=== PATIENT | female | born 1940 | race Caucasian/White ===

== ENCOUNTER 2023-04-19 13:26 | Outpatient (CLI) | payer OTHER, SELFPAY | END 2023-04-19 13:27 | disposition home or self-care (01) | PROVIDERS: Visit Provider Family Medicine | DX: Z00.00 Encounter for general adult medical examination without abnormal findings (principal); E03.9 Hypothyroidism, unspecified; E66.01 Morbid (severe) obesity due to excess calories; E11.9 Type 2 diabetes mellitus without complications | CPT/HCPCS: 80053; 84443 ==

== ENCOUNTER 2023-09-28 01:48 | Emergency (ER) | payer OTHER, SELFPAY ==
[2023-09-28 01:54] VITALS: BP 172/84; PULSE 61; RESP 16; TEMP 36.5; O2SAT 98; BMI 25.2
[2023-09-28 02:26] VITALS: BP 170/60; PULSE 66; RESP 16; TEMP 36.4; O2SAT 100
--- NOTE | 2023-09-28 02:33 | ED.GENADULT ---
HPI - General Adult General Chief complaint: Back Injury/Pain Stated complaint: right flank pain Time Seen by Provider: 09/28/23 02:09 Source: patient and family Mode of arrival: ambulatory Limitations: no limitations History of Present Illness HPI narrative: 83-year-old female with history of remote breast cancer presents to the emergency department for evaluation of right flank pain for the last few hours. No severe symptoms like dyspnea, hemoptysis, cardiac symptoms or syncope. There is no lightheadedness or rash. She reports that she took some Tylenol at around 6:00 p.m.. She tells me that the pain started around 830 p.m. so this does not quite make sense but she does have a history of some cognitive impairment. She denies any trauma or injury and when I redirect the question back to that several times she does give the same answer. Appetite is normal. There is no nausea or vomiting. The pain comes in crampy waves located in the upper right posterior flank area. No prior history of similar symptoms but does have a family history of kidney stones in her son. No hematuria, no dysuria, no vaginal discharge. She does have a history of gallstones but had her gallbladder removed many years ago with no complication. No history of DVT or PE, no anticoagulation. No palpitations, anterior chest pain or dizziness. She did not try ibuprofen or other pain medications prior to coming to the ED. she called her son and reported the pain and he brought her to an emergency department. Past medical history is notable for type 2 diabetes and cognitive impairment. She tells me that she takes lisinopril but is not on her medicine list and I suspect she is not actually taking it. She tell me that she does not take anything for her diabetes but I do see glipizide on her medicine list but it is listed as p.r.n.. She does accurately tell me that she takes Prevagen for her memory and levothyroxine, she does not know the dose but it is listed in the chart is 50 mg. She is a nonsmoker, lives in senior apartments in [place]. Does not recall the name of her doctor but it sounds as though she sees 1 of the providers at the [facility] in [place]. Nonsmoker, no alcohol use. ROS is notable for the generalized and musculoskeletal symptoms as above, otherwise denies times 12 systems. Related Data Home Medications Medication Instructions Recorded Confirmed prevagen PO 10/24/23 Previous Rx's Medication Instructions Recorded blood sugar diagnostic #100 ea 04/21/23 blood-glucose meter #1 ea 04/21/23 lancets (Accu-Chek Softclix #100 ea 04/21/23 Lancets) levothyroxine 50 mcg tablet 50 mcg PO DAILY #90 tabs 05/07/23 glipizide 5 mg tablet, extended 5 mg PO DAILY PRN hyperglycemia 08/31/23 release 24 hr #90 tabs ciprofloxacin HCl 250 mg tablet 250 mg PO BID #9 tabs 09/28/23 Allergies Allergy/AdvReac Type Severity Reaction Status Date / Time metformin AdvReac Intermediate Verified 09/28/23 02:03 PFSH PFS Social History Smoking Status: Never smoker Exam Const: Vital Signs, click to edit/add: Vital Signs - 24 hr 09/28/23 01:54 Temperature 97.7 F Pulse Rate [Pulse Oximeter] 61 Respiratory Rate 16 Blood Pressure [Le ft Upper Arm] 172/84 H Pulse Oximetry 98 Oxygen Delivery Me thod Room Air Documenting provider has reviewed patient's vital signs: yes Common normals: no apparent distress and alert General appearance: well kempt Other: Some cognitive impairment is evident not can answer most questions well. Friendly and cooperative. Polite. Appears well nourished and well hydrated. Nontoxic HENMT: Common normals: normocephalic and head/scalp atraumatic Head and scalp: normocephalic and atraumatic Face and sinus: normal facial exam Mouth: oral and palatal mucosa normal Throat: posterior oropharynx normal Eye: Common normals: conjunctivae normal General eye: normal appearance of both eyes Conjunctiva: conjunctiva(e) normal Neck & C-Spine: Common normals: full ROM and no lymphadenopathy Chest: Common normals: inspection of chest normal and palpation of chest normal Resp: Common normals: normal respiratory effort, no use of accessory muscles and clear to auscultation bilaterally Effort & inspection: able to speak in complete sentences Auscultation: clear to auscultation bilaterally Cardio: Common normals: regular rate, regular rhythm, S1 normal heart sound, S2 normal heart sound and no murmurs Rate: regular rate Rhythm: regular rhythm Heart sounds: S1 normal and S2 normal GI: Common normals: Normal to inspection, nondistended, normoactive bowel sounds present, soft to palpation, non-tender, no hepatosplenomegaly and no masses Palpation: soft and no hepatosplenomegaly : Bladder/kidney exam: CVA tenderness (Right-sided CVA tenderness is present) Back & Pelvis: General back: CVA tenderness (Right-sided CVA tenderness is present) Thoracic spine/upper back: normal to inspection and paraspinal muscle tenderness (Mild, right side only, mostly just near the CVA area.); no thoracic spinal tenderness Lumbar spine/lower back: normal to inspection; no lumbar spinal tenderness and no paraspinal muscle tenderness Extremity: Common normals: full ROM and normal capillary refill Other: Mild lymphedema right upper extremity noted. Reports this is chronic secondary to prior breast cancer treatment Neuro: Sensorium/orientation: alert Speech: speech normal Motor exam: strength 5/5 throughout, no tremor noted and no movement abnormalities noted Psych: Appearance: well kempt Activity/motor behavior: appropriate eye contact Insight: fair Judgement: fair Skin: Common normals: no rashes or lesions noted General skin exam: no rashes or lesions noted Course Course ED Course: Right-sided flank pain with CVA tenderness on exam and no other red flags of cardiopulmonary or intra-abdominal process. Differential diagnosis high as for kidney stone but cannot exclude pulmonary embolism, cardiac process, pneumonia, CHF, liver disease or early shingles that has not presented get with a rash. She declines pain medication for now though this was offered. Recommend urinalysis basic labs an EKG. Will likely be getting a CT scan of the abdomen and pelvis without contrast to look for kidney stone but I am awaiting the lab findings 1st. Reevaluation(s) Time of Reevaluation #1: 04:19 Reevaluation #1: Reviewed normal lab and CT findings with patient and family. She sitting upright in the chair, reporting no pain still. Conversing normally per son. Suspect musculoskeletal etiology, arthritis in the back or other similar etiology such as neuropathic type pain related to her previous breast cancer but there are no signs of any grave complication. The urine is suspicious for infection, do recommend treatment as this certainly could be a referred ureteral pain in the setting of mild infection. Will start ciprofloxacin as we do not have much resistance in our area. Two hundred fifty twice daily for a total of 5 days, 1st dose will be given here in ED. Subsequent doses sent to patient's preferred pharmacy. Counseled on Tylenol, ibuprofen and topical muscle rub for pain control. Primary care follow-up if not improving in 7 days. All questions answered, they verbalized understanding and agreement Vital Signs Vital signs: Initial Vital Signs Temperature 97.7 F 09/28/23 01:54 Temperature Source Temporal Artery Scan 09/28/23 01:54 Pulse Rate 61 09/28/23 01:54 Respiratory Rate 16 09/28/23 01:54 Blood Pressure 172/84 H 09/28/23 01:54 Blood Pressure Mean 113 H 09/28/23 01:54 Blood Pressure Position Supine 09/28/23 01:54 Pulse Oximetry 98 09/28/23 01:54 Oxygen Delivery Method Room Air 09/28/23 01:54 Vital Signs Temperature 97.7 F 09/28/23 01:54 Pulse Rate 61 09/28/23 01:54 Respiratory Rate 16 09/28/23 01:54 Blood Pressure 172/84 H 09/28/23 01:54 Pulse Oximetry 98 09/28/23 01:54 Oxygen Delivery Method Room Air 09/28/23 01:54 Temperature 97.7 F 09/28/23 01:54 Pulse Rate 61 09/28/23 01:54 Respiratory Rate 16 09/28/23 01:54 Blood Pressure 172/84 H 09/28/23 01:54 Pulse Oximetry 98 09/28/23 01:54 Oxygen Delivery Method Room Air 09/28/23 01:54 Medical Decision Making Lab Data Labs: Lab Results 09/28/23 09/28/23 Range/Units 02:25 03:10 WBC 3.09 L (4.50-11.00) K/uL RBC 3.71 L (4.00-5.20) m/uL Hgb 12.4 (12.0-16.0) gm/dL Hct 37.1 (33.0-51.0) % MCV 100 (80-100) fL MCH 33 (26-34) pg MCHC 33 (32-36) gm/dL RDW Coeff of Neal 12.4 (11.5-15.5) % Plt Count 199 (140-440) K/uL Neut % (Auto) 31.4 L (42.0-72.0) % Lymph % (Auto) 52.1 H (20-44) % [place] % (Auto) 13.3 H (0.0-11.0) % Eos % (Auto) 1.9 (0.0-7.0) % Baso % (Auto) 0.3 (0.0-3.0) % Neut # (Auto) 1.00 L (1.7-7.0) K/uL Lymph # (Auto) 1.60 (0.90-2.90) K/uL [place] # (Auto) 0.40 (0.00-0.90) K/UL Eos # (Auto) 0.10 (0.00-0.50) K/uL Baso # (Auto) 0.00 (0.00-0.30) K/uL Abs Immat Gran (auto) 0.00 (0.00-0.30) K/uL Imm/Tot Granulo (auto) 1.0 % D-Dimer Quant (PE/DVT) < 0.27 (0.00-0.50) ug/ml Sodium 140 (135-149) mmol/L Potassium 4.0 (3.6-5.1) mmol/L Chloride 104 (96-114) mmol/L Carbon Dioxide 27 (20-32) mmol/L Anion Gap 9 (7-15) mEq/L BUN 23 (7-30) mg/dL Creatinine 0.9 (0.5-1.5) mg/dL Estimated Creat Clear 32.53 Estimated GFR 63 ml/min Glucose 186 H (60-115) mg/dL Calcium 9.2 (8.4-10.6) mg/dL Total Bilirubin 0.4 (0.1-1.5) mg/dL AST 22 (12-35) U/L ALT 19 (4-35) U/L Alkaline Phosphatase 72 (40-150) U/L Troponin I < 0.01 L (0.01-0.04) ng/mL C-Reactive Protein < 0.5 L (0.5-1.0) mg/dL Total Protein 7.0 (6.0-8.3) g/dL Albumin 4.1 (3.3-5.0) g/dL Urine Color Yellow (Yellow) Urine Appearance Cloudy A (Clear) Urine pH 5.0 (5.0-8.5) Ur Specific [place] 1.025 (1.000-1.030) Urine Protein Negative (Negative) Urine Glucose (UA) Trace A (Negative) Urine Ketones Negative (Negative) Urine Blood Trace-intact A (Negative) Urine Nitrite Positive A (Negative) Urine Bilirubin Negative (Negative) Urine Urobilinogen 0.2 (0.2-1.0) Ur Leukocyte Esterase 1+ A (Negative) Urine RBC 0-2 (0-2) Urine WBC 5-10 A (0-5) Ur Squamous Epith Cells Moderate A (None-Few) Urine Bacteria Moderate A (None) POC Troponin I 0.00 L (0.01-0.04) ng/ml Imaging Data CT scan - abdomen: Attestation: I have reviewed the pertinent imaging results. My impression: Normal CT Radiologist's impression: IMPRESSION: Unremarkable CT of the abdomen and pelvis. No kidney or ureteral stones or hydronephrosis and no other specific finding to explain right flank pain. Please note that all CT scans at this facility use dose modulation, iterative reconstruction, and/or weight-based dosing when appropriate to reduce radiation dose to as low as reasonably achievable. ECG Data Attestation: I personally reviewed and interpreted this ECG as follows: Prior ECG tracings: not available for review Interpretation: Normal sinus rhythm, rate of 78. Normal intervals and axis. No significant ST or T-wave abnormalities. Normal EKG. Surprisingly great for her age Discharge Plan Discharge Clinical Impression: Urinary tract infection, Back pain, thoracic Patient Disposition: Home w/ Parent or Adult Condition: Improved Instructions: Thoracic Pain (ED), Urinary Tract Infection in Older Adults (ED) Additional Instructions: As we discussed, there are no signs of major infection, blood clots, heart attack or kidney stones today. This is great news. I suspect that your pain is from some arthritis in your back or a pulled muscle. It could also be related to the mild bladder infection that you have. There are no signs of severe infection thankfully. I do recommend that we treat the bladder infection. I have started an antibiotic notice ciprofloxacin. He will take this 1 pill 2 times daily for the next few days. For the pain, I recommend Tylenol arthritis 2 pills twice daily. You may also use muscle rubs like icy Hot, Nathan-Dooley patches, etc.. You may also use ibuprofen 400 mg every 6 hours if your pain is not adequately controlled by the Tylenol. Unless there is high fever, severe weakness, difficulty breathing or cardiac symptoms, this should not need re-evaluation in the emergency department. If you are still having problems after 7 days, make a follow-up appointment with her primary care doctor to discuss physical therapy and additional investigation. Activity Level: No Restrictions Discharge Diet: Regular Prescriptions: New ciprofloxacin HCl 250 mg tablet 250 mg PO BID Qty: 9 0RF No Action (DME) blood sugar diagnostic Strip See Rx Instructions .ROUTE .MEDSUPPLY Qty: 100 0RF Rx Instructions: Once daily, varied times (DME) blood-glucose meter Kit See Rx Instructions .ROUTE .MEDSUPPLY Qty: 1 0RF Rx Instructions: Test 1-4 times daily, and as needed for new symptoms (DME) lancets [Accu-Chek Softclix Lancets] Misc See Rx Instructions .ROUTE .MEDSUPPLY Qty: 100 0RF Rx Instructions: 1-4 times daily, and prn symptoms levothyroxine 50 mcg tablet 50 mcg PO DAILY Qty: 90 3RF prevagen PO glipizide 5 mg tablet extended release 24hr 5 mg PO DAILY PRN (Reason: hyperglycemia) Qty: 90 1RF Follow Up/Referrals: Dawood Simmons PA-C [Primary Care Provider] - Stand Alone Forms: [employer] Info Instructions
[2023-09-28 02:37] LABS: Appearance Urine Cloudy (Clear); Bilirubin Urine Negative (Negative); Blood Urine Trace-intact (Negative); Color Urine Yellow (Yellow); Glucose Urine Trace (Negative); Ketones Urine Negative (Negative); Leukocyte Esterase Urine 1+ (Negative); Nitrite Urine Positive (Negative); Protein Urine Negative (Negative); Specific Gravity Urine 1.025 (1.000-1.030); Urobilinogen Urine 0.2 (0.2-1.0)
[2023-09-28 02:46] LABS: Bacteria Urine Moderate; RBC Urine 0-2 (0-2); Squamous Epithelial Cell Urine Moderate (None-Few)
--- NOTE | 2023-09-28 02:47 | CRLHL7_ITS ---
For Patients: As a result of the Century Cures Act, medical imaging exams and procedure reports are released immediately into your electronic medical record. You may view this report before your referring provider. If you have questions, please contact your health care provider. INDICATION: Right flank pain. TECHNIQUE: CT abdomen and pelvis without contrast, stone protocol. COMPARISON: None. FINDINGS: Kidney/ureters/bladder: Kidneys are normal in caliber. No kidney or ureteral stones and no hydronephrosis. No sign of perinephric inflammation. Ureters are normal in caliber. Distal ureters and bladder are obscured by artifact from bilateral hip hardware. Liver/gallbladder/bile ducts: The liver is normal in size, shape and attenuation. Cholecystectomy. Spleen/pancreas/adrenal glands: The spleen, adrenal glands and pancreas are within normal limits. GI tract: The bowel is unremarkable except for moderate sigmoid diverticulosis. Post appendectomy. Abdominal wall/omentum/peritoneum: No free air or significant free fluid. No mass or inflammation. Lymph nodes: No lymphadenopathy. Pelvis: Unremarkable pelvis. Lower chest: Unremarkable. IMPRESSION: Unremarkable CT of the abdomen and pelvis. No kidney or ureteral stones or hydronephrosis and no other specific finding to explain right flank pain. Please note that all CT scans at this facility use dose modulation, iterative reconstruction, and/or weight-based dosing when appropriate to reduce radiation dose to as low as reasonably achievable. Dictated by Azeem Lainez MD @ 09/28/2023 4:06:43 AM (Electronically Signed)
[2023-09-28 03:21] LABS: Basophils Percent Auto 0.3 % (0.0-3.0); Eosinophils Percent Auto 1.9 % (0.0-7.0); Hematocrit 37.1 % (33.0-51.0); Hemoglobin* 12.4 gm/dL (12.0-16.0); Lymphocytes Percent Auto 52.1 % (20-44); Mean Corpuscular HGB Conc 33 gm/dL (32-36); Mean Corpuscular Hemoglobin 33 pg (26-34); Mean Corpuscular Volume 100 fL (80-100); Monocytes Percent Auto 13.3 % (0.0-11.0); Neutrophils Percent Auto 31.4 % (42.0-72.0); Platelet Count* 199 K/uL (140-440); RDW Coefficient of Variation % 12.4 % (11.5-15.5); Red Blood Count 3.71 m/uL (4.00-5.20); White Blood Count* 3.09 K/uL (4.50-11.00)
[2023-09-28 03:29] LABS: Slide Review Reflex No
[2023-09-28 03:35] LABS: Albumin* 4.1 g/dL (3.3-5.0); Chloride* 104 mmol/L (96-114); Sodium* 140 mmol/L (135-149)
[2023-09-28 03:37] LABS: Creatinine* 0.9 mg/dL (0.5-1.5); Est. Creatinine Clearance* 32.53; Estimated Glomerular Filt Rate 63 ml/min
[2023-09-28 03:38] LABS: Alanine Aminotransferase* 19 U/L (4-35); Alkaline Phosphatase* 72 U/L (40-150); Anion Gap 9 mEq/L (7-15); Aspartate Amino Transferase* 22 U/L (12-35); Bilirubin Total* 0.4 mg/dL (0.1-1.5); Blood Urea Nitrogen* 23 mg/dL (7-30); Carbon Dioxide* 27 mmol/L (20-32); Glucose* 186 mg/dL (60-115)
[2023-09-28 03:39] LABS: Calcium* 9.2 mg/dL (8.4-10.6)
[2023-09-28 03:40] LABS: D Dimer Quantitative* < 0.27 ug/ml (0.00-0.50)
[2023-09-28 03:42] LABS: C Reactive Protein* < 0.5 mg/dL (0.5-1.0)
[2023-09-28 03:50] LABS: Troponin I* < 0.01 ng/mL (0.01-0.04)
[2023-09-28] MEDS: CIPROFLOXACIN 250 MG TABLET PO (04:20)
--- NOTE | 2023-09-28 04:32 | PC.NURSE ---
DC ambulatory with , pain has improved at this time. no further questions about DC instructions
== END 2023-09-28 04:31 | disposition home or self-care (01) ==
PROVIDERS: Emergency Provider Family Medicine; PCP Physician Assistant Medical
DX: M54.6 Pain in thoracic spine (principal); N39.0 Urinary tract infection, site not specified
CPT/HCPCS: 36415; 74176; 80053; 81003; 81015; 84484; 85025; 85379; 86140; 87086; 87186; 93005; 99284; 99285; A9270

== ENCOUNTER 2024-03-02 09:28 | Outpatient (CLI) | payer OTHER, SELFPAY | END 2024-03-02 09:29 | disposition home or self-care (01) | LOC: NFLDREF 03-03 06:14 | PROVIDERS: PCP Physician Assistant Medical; Referring Provider Physician Assistant Medical; Visit Provider Physician Assistant Medical | DX: E03.9 Hypothyroidism, unspecified (principal); E11.9 Type 2 diabetes mellitus without complications | CPT/HCPCS: 80053; 80061; 82043; 82570; 84443 ==

== ENCOUNTER 2024-06-14 09:56 | Outpatient (CLI) | payer MEDICARE, SELFPAY | END 2024-06-14 09:57 | disposition home or self-care (01) | LOC: NFLDREF 06-18 07:21 | PROVIDERS: PCP Physician Assistant Medical; Referring Provider Physician Assistant Medical; Visit Provider Physician Assistant Medical | DX: R53.83 Other fatigue (principal); E11.49 Type 2 diabetes mellitus with other diabetic neurological complication; E03.9 Hypothyroidism, unspecified; Z86.39 Personal history of other endocrine, nutritional and metabolic disease | CPT/HCPCS: 82306; 82607 ==

== ENCOUNTER 2024-08-30 08:42 | Outpatient (CLI) | payer MEDICARE, SELFPAY ==
--- NOTE | 2024-08-30 09:00 | CRLHL7_ITS ---
For Patients: As a result of the Century Cures Act, medical imaging exams and procedure reports are released immediately into your electronic medical record. You may view this report before your referring provider. If you have questions, please contact your health care provider. 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 COMPARISON: Two view chest July 27, 2024. TECHNIQUE: CT chest without intravenous contrast; coronal and sagittal reformats. FINDINGS: Extrapleural soft tissue mass density identified in the right upper chest anterolaterally measuring 2.2 cm in vertical dimension and 1.6 cm in the AP dimension and 1 cm in the [id number]-we-wehx dimension. The average Hounsfield units of 28. This is located in the right 5th intercostal space. 2 mm subpleural noncalcified nodular density right upper lobe slice 21 series 3. Patchy nodular infiltrate upper lobe right lung. A 1.4 x 0.7 cm ground-glass opacity right middle lobe slice 90 series 5. A 6.6 mm spiculated noncalcified nodular density lower lobe left lung slice 45 series 3. No abnormal mediastinal or hilar lymphadenopathy. Coronary artery calcifications. No evidence of pleural effusion or chest wall pathology. Limited CT through the upper abdomen reveals evidence of cholecystectomy. Calcifications identified in the subareolar location right breast. IMPRESSION: 1. A 6.6 mm spiculated nodular opacity lower lobe left lung; follow-up chest CT in 3 months duration suggested. 2. A 1.4 x 0.7 cm ground-glass opacity right middle lobe; follow-up chest CT in 6 months suggested 3. An extrapleural soft tissue density in the right anterolateral chest wall; could represent a schwannoma; CT and MR of the chest with intravenous contrast suggested for further assessment. 4. Patchy infiltrates right upper lobe. 5. Coronary artery calcifications. Please note that all CT scans at this facility use dose modulation, iterative reconstruction, and/or weight-based dosing when appropriate to reduce radiation dose to as low as reasonably achievable. Dictated by Brook Mijares MD @ 09/01/2024 12:56:09 PM (Electronically Signed)
== END 2024-08-30 08:43 | disposition home or self-care (01) ==
PROVIDERS: PCP Physician Assistant Medical; Visit Provider Emergency Medicine
DX: D36.14 Benign neoplasm of peripheral nerves and autonomic nervous system of thorax (principal); I25.10 Atherosclerotic heart disease of native coronary artery without angina pectoris; N64.4 Mastodynia
CPT/HCPCS: 71250

== ENCOUNTER 2024-10-26 14:40 | Outpatient (CLI) | payer MEDICARE, SELFPAY | END 2024-10-26 14:41 | disposition home or self-care (01) | LOC: LKVREF 14:40 | PROVIDERS: PCP Physician Assistant Medical; Visit Provider Emergency Medicine | DX: I10 Essential (primary) hypertension (principal) | CPT/HCPCS: 80048 ==

== ENCOUNTER 2025-01-25 10:36 | Outpatient (CLI) | payer MEDICARE, SELFPAY | END 2025-01-25 10:37 | disposition home or self-care (01) | LOC: LKVREF 10:36 | PROVIDERS: PCP Physician Assistant Medical; Visit Provider Emergency Medicine | DX: E03.9 Hypothyroidism, unspecified (principal); E11.49 Type 2 diabetes mellitus with other diabetic neurological complication; D75.89 Other specified diseases of blood and blood-forming organs; E16.2 Hypoglycemia, unspecified | CPT/HCPCS: 82043; 82570; 84443 ==

== ENCOUNTER 2025-03-18 06:00 | Emergency (ER) | payer MEDICARE, SELFPAY ==
--- OUTSIDE RECORDS SUMMARY | 2025-03-18 06:02 | XMS_ITS | Encounter Summary ---
[facility] Organization [facility] Address [address], [place] [address] Care Team Providers Care Lawn Care Specialist Name Role Phone Nadia Benson PA-C Primary Care Provider [phone] Encounter Details Date Type Department Care Team (Late st Contact Info) Description 08/13/2019 Outside Hospital External to [facility] HISTORY AND PHYSICAL - ADDENDUM Social History Tobacco Use Types Packs/Day Years Used Date Smoking Tobacco: Never Assessed PHQ-2 Answer Date Recorded PHQ-2 Score 2 03/04/2019 Comments No Sex and Gender Information Value Date Recorded Sex Assigned at Not on file Legal Sex Female 5:25 AM CDT Gender Identity Not on file Sexual Orientation Not on file documented as of this encounter Plan of Treatment Not on file documented as of this encounter Visit Diagnoses Not on filedocumented in this encounter Care Teams Lawn Care Specialist Relationship Specialty Start Date End Date Nadia Benson PA-C [address] [place] [address] PCP - General Physician Tune Up Mechanic 06/09/21 documented as of this encounter
--- OUTSIDE RECORDS SUMMARY | 2025-03-18 06:02 | XMS_ITS | Encounter Summary ---
Author Organization [facility] Address [address] [facility] [place] [address] Care Team Providers Care Html Developer Name Role Phone Handy Noyola DO Unavailable [phone] Bisi Mcfarlane MD Primary Care Provider [phone] John Jones MD Unavailable Noble Freire MD Unavailable [phone] Marii Mendiola RN Unavailable Unavailable Trev Montanez MD Unavailable Buffy Esparza PA-C Unavailable Trev Montanez MD Unavailable Encounter Details Date Type Department Care Team (Late st Contact Info) Description 10/23/2024 [facility] [address] [place] [address] Marii Mendiola, RN Social History Tobacco Use Types Packs/Day Years Used Date Smoking Tobacco: Never Smokeless Tobacco: Never Alcohol Use Standard Drinks/Week Comments Not Currently 0 (1 standard drink = 0.6 oz pur e alcohol) Adolescent Education Answer Date Record ed Getting School Help Needed Not on file 08/14 Interpersonal Safety Answer Date Record ed Do you feel physically and e motionally safe where you currently live? Yes 10/18/2024 Within the past 12 months, h ave you been hit, slapped, kicked or otherwise physically hurt by someone? No 10/18/2024 Within the past 12 months, h ave you been humiliated or emotionally abused in other ways by your partner or ex-partner? 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 Gender Identity Not on file Sexual Orientation Not on file documented as of this encounter Plan of Treatment Not on file documented as of this encounter Visit Diagnoses Not on filedocumented in this encounter Care Teams Html Developer Relationship Specialty Start Date End Date Bisi Mcfarlane MD [facility] [address] [place] [address] PCP - General Family Medicine 09/18/24 Handy Noyola DO [address] [facility] [address] [place] [address] Box Inspector Pulmonary Disease 09/14/24 John Jones MD [facility] [address] [place] [address] [address] [place] [address] Hematology & Oncology 09/18/24 Noble Freire MD [facility] [address] [facility] [address] [place] [address] Hematology & Oncology 09/18/24 Marii Mendiola, BEBETO Specialty Mine Foreman Hematology & Oncology 10/06/24 Trve Montanez MD [address] [place] [address] [address] [place] [address] Assigned Heart and Vascular Provider 10/30/24 01/27/25 Buffy Esparza PA-C [address] [place] [address] [address] [place] [address] Assigned Surgical Provider 10/30/24 Trev Montanez MD [address] [facility] [address] [place], [place] [address] Assigned Heart and Vascular Surgical Provider 01/28/25 documented as of this encounter
--- OUTSIDE RECORDS SUMMARY | 2025-03-18 06:02 | XMS_ITS | Clinical Summary ---
Author Organization [place] Address [address] [place] [address]. [place] [address] Care Team Providers Care Certified First Assistant Name Role Phone Handy Noyola DO Unavailable [phone] Bisi Mcfarlane MD Primary Care Provider [phone] John Jones MD Unavailable Noble Freire MD Unavailable [phone] Marii Mendiola RN Unavailable Unavailable Buffy EsparzaC Unavailable [phone] Trev Montanez MD Unavailable Allergies Active Allergy Reactions Criticality Noted Date Comments Gabapentin Rash Low 11/27/2013 Metformin Low 09/12/2024 Omeprazole Angioedema High 05/31/2013 Statins Muscle Pain (Myalgia) Low 04/16/2009 Medications levothyroxine (SYNTHROID/LEV OTHROID) 50 MCG tablet Take 50 mcg by mouth every morning. 10/27/20 18 Active cyanocobalamin (VITAMIN B-12) 1000 [address] 1,000 mcg under the tongue daily. 02/13/20 20 Active acetaminophen (TYLENOL) 325 MG tabletIndicati ons:Schwannoma Take 3 tablets (975 mg) by mouth every 6 hours. 10/19/20 24 Active JARDIANCE 10 MG TABS tablet Take 25 mg by mouth daily. 12/19/20 24 Active aspirin 81 MG EC tablet Take 81 mg by mouth daily. Active glipiZIDE (GLUCOTROL XL) 10 MG 24 hr tablet Take 10 mg by mouth 2 times daily. 08/03/20 025 Discontinued Lidocaine (LIDOCARE) 4 % Patch Place 1 patch onto the skin every 24 hours. To prevent lidocaine toxicity, patient should be patch free for 12 hrs daily. 025 Discontinued Diclofenac Sodium 3 % GEL Apply 1 Application topically 2 times daily as needed. FOR BACK PAIN 025 Discontinued methocarbamol (ROBAXIN) 500 MG tabletIndicati ons:Schwannoma Take 1 tablet (500 mg) by mouth every 6 hours as needed for muscle spasms. 20 tablet 10/19/20 025 Discontinued polyethylene glycol (MIRALAX) 17 g packetIndicati ons:Schwannoma Take 17 g by mouth daily. 7 packet 10/20/20 025 Discontinued senna-docusate (SENOKOT-S/PER ICOLACE) 8.6-50 MG tabletIndicati ons:Schwannoma Take 1 tablet by mouth 2 times daily as needed for constipation. 14 tablet 10/19/20 025 Discontinued oxyCODONE (ROXICODONE) 5 MG tabletIndicati ons:Schwannoma Take 0.5 tablets (2.5 mg) by mouth every 4 hours as needed for moderate pain or moderate to severe pain. 40 tablet 10/19/20 025 Discontinued Active Problems Problem Noted Date Diagnosed Date Schwannoma 10/18/2024 Adenomatous polyp of colon 09/18/2024 Overview (09/18/2024): 2009 Arthralgia of multiple joints 09/18/2024 Atrophic vaginitis 09/18/2024 Back pain, thoracic 09/18/2024 Chronic leg pain 09/18/2024 Vaginal bleeding 09/18/2024 Disorder of vagina 09/18/2024 Estrogen receptor positive status (ER+) 09/18/20 History of non anemic vitamin B12 deficiency 09/2024 History of partial mastectomy of left breast 09/2024 Leukopenia 09/18/2024 Overview (09/18/2024): Pathology negative Lung infiltrate on CT 09/18/2024 Overview (09/18/2024): No symptoms, doxycycline Nerve pain 09/18/2024 Neutropenia 09/18/2024 Overview (09/18/2024): ANC 1.0 peripheral smear 2023 Osteoporosis 09/18/2024 Overview (09/18/2024): [facility] records could not tolerate biphosphonate Pulmonary nodules 09/18/2024 Overview (09/18/2024): Repeat chest CT 3 in 6 months 08/2024 LLL and RML 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 Overview (09/18/2024): right pleural schwannoma, recommend CT every 1-[address]?06/[address] August 2024 2.2 cm x 1.6 cm x 1 cm Chronic headache 08/13/2019 Essential tremor 08/13/2019 Shaking 08/13/2019 Insomnia 06/20/2019 B12 nutritional deficiency 01/13/2019 Colon polyps 01/13/2019 Overview (09/18/2024): Colonoscopy 06/10/2005 with polyps, repeat 09/2010 with adenomatous polyps, repeat 5 years Hyperlipidemia 01/13/2019 Elevated TSH 05/21/2017 Microalbuminuria 02/28/2016 Type 2 diabetes mellitus 05/20/2015 Malignant neoplasm of right female breast 2013 Porokeratosis 12/12/2013 History of osteoporosis 11/27/2013 Overview (09/18/2024): Intol bisphosphonate Gastroesophageal reflux disease 01/22/2013 Overview (09/18/2024): EGD 2012 Hip arthritis 04/20/2011 Encounters Date Type Department Care Team Description 03/05/2025 11:45 AM CDT Oncology Visit [facility] [address] [place] [phone] Michaela Caruso APRN GAS ENGINE REPAIRER Schwannoma of nerve of chest (Primary Dx) 03/05/2025 10:40 AM CDT Ancillary Procedure [facility] [place] [address] [facility] 1st [place] [address] Trev Montanez MD Schwannoma of nerve of chest 03/05/2025 Travel 02/21/2025 2:21 PM CDT - 02/21/2025 11:59 PM CDT Hospital Encounter [facility] [place] [address], [address] [place] [address] Bisi Mcfarlane MD Visit for screening mammogram Discharge Disposition: Home or Self Care 02/21/2025 Travel from Last 3 Months Immunizations Immunization Administration Dates Next Due Flu 65+ (Fluad) 08/07/2024,09/02/2018,09/03/2017 Influenza (High Dose) Trival ent,PF (Fluzone) 08/04/2019,10/02/2016,07/31/2014 Influenza (IIV3) PF 09/29/2013, 3,07/21/2010,2008 Influenza Vaccine 65+ (FLUAD) 09/04/2021 Influenza Vaccine 65+ (Fluzone HD) 08/31/2023 Influenza Vaccine >6 months,quad, PF ,08/07/2015,08/09/2008,2006,09/25/1998 Influenza, Split Virus, Triv alent, Pf (Fluzone\Fluarix) 07/22/2011 Pneumo Conj 13-V (2010&after) 11/22/2015 Pneumococcal 23 valent 11/08/2008 TDAP (Adacel,Boostrix) 11/24/2012 Td (Adult), Adsorbed 09/13/2006,08/08/2006 Zoster vaccine, live 09/12/2007 Family History Medical History Relation Comments Breast Cancer Sister 1 Anesthesia Reaction No family hx of Bleeding Disorder No family hx of Clotting Disorder No family hx of Relation Status Comments Brother 1 Brother 2 Brother 3 Father Mother Sister 1 Alive Sister 2 Sister 3 Sister 4 Social History Tobacco Use Types Packs/Day Years Used Date Smoking Tobacco: Never Smokeless Tobacco: Never Tobacco Cessation:Counseling Given: Not Answered Alcohol Use Standard Drinks/Week Comments Not Currently 0 (1 standard drink = 0.6 oz pur e alcohol) PHQ-2 Answer Date Recorded PHQ-2 Score 0 03/05/2025 Adolescent Education Answer Date Record ed Getting [...] on file Legal Sex Female 3:03 AM JOB MOLDER Gender Identity Not on file Sexual Orientation Not on file Last Filed Vital Signs Vital Sign Reading Time Taken Comments Blood Pressure 119/67 03/05/2025 11:38 AM CDT Pulse 72 03/05/2025 11:38 AM CDT Temperature 36.4 C (97.5 F) 03/05/2025 11:38 AM CDT Respiratory Rate 20 03/05/2025 11:38 AM CDT Oxygen Saturation 97% 03/05/2025 11:38 AM CDT Inhaled Oxygen Concentration - - Weight 62.1 kg (137 lb) 03/05/2025 11:38 AM CDT Height 157.5 cm (5' 2) 10/18/2024 5:53 AM JOB MOLDER Body Mass Index 25.06 10/18/2024 5:53 AM JOB MOLDER Plan of Treatment Health Maintenance Due Date Last Done Comments ANNUAL REVIEW OF HM ORDERS 1938 DIABETIC FOOT EXAM 1938 EYE EXAM 1938 LIPID 1938 MICROALBUMIN 1938 TSH W/FREE T4 REFLEX 1938 FALL RISK ASSESSMENT 2003 MEDICARE ANNUAL WELLNESS VISIT 2003 ZOSTER IMMUNIZATION (2 of 3) 11/07/2007 09/12/2007 RSV VACCINE (1 - 1-dose 75+ series) 2013 DTAP/TDAP/TD IMMUNIZATION (2 - Td or Tdap) 11/24/2022 11/24/2012, 09/13/2006, 08/08/2006 A1C 01/11/2025 10/13/2024, 06/14/2024 COVID-19 Vaccine ( season) 2025 08/07/2024, 09/17/2023, 05/08/2022, Additional history exists BMP 10/19/2025 10/19/2024, 04/2024, 05/20/2020 MAMMO SCREENING 02/21/2026 02/21/2025, 02/06, 02/15/2023, Additional history exists ADVANCE CARE PLANNING 10/13/2029 10/13/2024 DEXA 02/24/2033 02/24/2018 Pneumococcal Vaccine: 50+ Years Completed 11/22/2015, 11/08/2008 INFLUENZA VACCINE Completed 08/07/2024, , 09/04/2021, Additional history exists PHQ-2 (once per calendar year) Completed 03/05/2025, 10/13/2024 HPV IMMUNIZATION Aged Out No longer e ligible based on patient's age to complete this topic MENINGITIS IMMUNIZATION Aged Out No l onger eligible based on patient's age to complete this topic Procedures Procedure Name Priority Date/Time Associated Diagnosis Comments CT CHEST W/O CONTRAST Routine 03/05/2025 10:38 AM CDT Schwannoma of nerve of chest MA SCREENING BILATERAL W/ YOVANI Routine 02/21/2025 2:39 PM CDT Visit for screening mammogram BASIC METABOLIC PANEL Routine 10/19/2024 6:47 AM JOB MOLDER HEMOGLOBIN A1C Routine 10/13/2024 9:30 AM JOB MOLDER Pre-operative examination Schwannoma of nerve of chest Type 2 diabetes mellitus without complication, without long-term current use of insulin (H) from Last 3 Months or Most Recently Relevant to Health Maintenance Results * CT Chest w/o Contrast (03/05/2025 10:38 AM CDT) Anatomical Region Laterality Modality Chest, SUBRAD CT BODY, UMP CT CHEST, RAD CT Computed Tomography Impressions 03/05/2025 2:35 PM CDT IMPRESSION: Diffuse atherosclerosis. Cholecystectomy. 5 mm left lower lobe nodule unchanged from August 2024. Interval removal of right chest wall pleural-based mass. ARMEN FABIAN MD Narrative 03/05/2025 2:[address] chest without contrast INDICATION: Schwannoma COMPARISON: Outside chest CT 08/30/2024 No contrast. The included thyroid appears unremarkable. There is atherosclerotic calcification in the aorta and coronary arteries. Heart size normal. Thoracic aortic caliber normal. Pulmonary artery caliber normal coarse calcification right breast with nipple retraction suggested. Review of recent mammogram showed right breast surgery related disease findings. Cholecystectomy. Splenic artery diffuse atherosclerotic calcification as well as in the abdominal aorta and the proximal superior mesenteric artery. No enlarged lymph nodes in the chest. No effusions. Degenerative changes in the spine. Detail of the lungs shows calcified granuloma lateral right upper lobe. Calcified granuloma right minor fissure. There is an endobronchial 3 x 2 mm right middle lobe nodule (4/145). Lingular subsegmental atelectasis. The solid noncalcified subpleural nodule measures approximately 5 mm (4/164) the area unchanged. The previous right lateral pleural-based soft tissue mass in the right fifth intercostal space region history no longer evident. Procedure Note Armen Fabian MD - 03/05/2025 CT chest without contrast INDICATION: Schwannoma COMPARISON: Outside chest CT 08/30/2024 No contrast. The included thyroid appears unremarkable. There is atherosclerotic calcification in the aorta and coronary arteries. Heart size normal. Thoracic aortic caliber normal. Pulmonary artery caliber normal coarse calcification right breast with nipple retraction suggested. Review of recent mammogram showed right breast surgery related disease findings. Cholecystectomy. Splenic artery diffuse atherosclerotic calcification as well as in the abdominal aorta and the proximal superior mesenteric artery. No enlarged lymph nodes in the chest. No effusions. Degenerative changes in the spine. Detail of the lungs shows calcified granuloma lateral right upper lobe. Calcified granuloma right minor fissure. There is an endobronchial 3 x 2 mm right middle lobe nodule (4/145). Lingular subsegmental atelectasis. The solid noncalcified subpleural nodule measures approximately 5 mm (4/164) the area unchanged. The previous right lateral pleural-based soft tissue mass in the right fifth intercostal space region history no longer evident. IMPRESSION: Diffuse atherosclerosis. Cholecystectomy. 5 mm left lower lobe nodule unchanged from August 2024. Interval removal of right chest wall pleural-based mass. ARMEN FABIAN MD Trev Montanez MD [place] [facility] ORDERABLES Fin al Result * MA Screening Bilateral w/ Yovani (02/21/2025 2:39 PM CDT) Anatomical Region Laterality Modality Breast Bilateral Mammography Impressions 02/21/2025 3:28 PM CDT IMPRESSION: ACR BI-RADS Category 2: Benign BREAST CANCER SCREENING RECOMMENDATION: Routine yearly mammography beginning at age 40 or as discussed with your provider. The results and recommendations of this examination will be communicated to the patient. Bo Devi MD Narrative 02/21/2025 3:28 PM CDT BILATERAL FULL FIELD DIGITAL SCREENING MAMMOGRAM WITH TOMOSYNTHESIS Performed on: 02/21/25 Compared to: 02/18/2024 and 12/11/2020 Technique: This study was evaluated with the assistance of Computer-Aided Detection. Breast Tomosynthesis was used in interpretation. Findings: There are scattered areas of fibroglandular density. There are post-surgical changes in the right breast. There is no radiographic evidence of malignancy. us Bisi Mcfarlane MD IMG MAMMOGRAPHY ORDERABLES Final Result * (ABNORMAL) Basic metabolic panel (10/19/2024 6:47 AM JOB MOLDER) Sodium 138 135 - 145 mmol/L 10/19/2024 7:28 AM JOB MOLDER [facility] Potassium 4.2 3.4 - 5.3 mmol/L 10/19/2024 7:28 AM JOB MOLDER [facility] Chloride 106 98 - 107 mmol/L 10/19/2024 7:28 AM JOB MOLDER [facility] Carbon Dioxide (CO2) 21(L) 22 - 29 mmol/L 10/19/2024 7:28 AM JOB MOLDER [facility] Anion Gap 11 7 - 15 mmol/L 10/19/2024 7:28 AM JOB MOLDER [facility] Urea Nitrogen 14.8 8.0 - 23.0 mg/dL 10/19/2024 7:28 AM JOB MOLDER [facility] Creatinine 0.95 0.51 - 0.95 mg/dL 10/19/2024 7:28 AM JOB MOLDER [facility] GFR Estimate 58(L) >60 mL/min/1.7 3m2 10/19/2024 7:28 AM JOB MOLDER [facility] Comment:eGFR calculated usin 2020 CKD-EPI equation. Calcium 9.0 8.8 - 10.4 mg/dL 10/19/2024 7:28 AM JOB MOLDER [facility] Comment:Reference intervals for this test were updated on 05/23/2024 to reflect our healthy population more accurately. There may be differences in the flagging of prior results with similar values performed with this method. Those prior results can be interpreted in the context of the updated reference intervals. Glucose 119(H) 70 - 99 mg/dL 10/19/2024 7:28 AM JOB MOLDER [facility] Blood STRUCTURE OF LEFT HAND / Unknown Venipuncture / Unknown 10/19/2024 6:47 AM JOB MOLDER 10/19/2024 6:58 AM JOB MOLDER us Mary Starkey MD LAB - BLOOD ORDERABLES Fin al Result [facility] [address] [facility] [address], [address] [place] [address], [facility] * (ABNORMAL) Hemoglobin A1c (10/13/2024 9:30 AM JOB MOLDER) Estimated Average Glucose 148(H) <117 mg/dL 10/13/2024 12:59 PM JOB MOLDER [facility] Hemoglobin A1C 6.8(H) <5.7 % 10/13/2024 12:59 PM JOB MOLDER [facility] Comment: Normal <5.7% Prediabetes 5.7-6.4% Diabetes 6.5% or higher Note: Adopted from ADA consensus guidelines. Blood BLOOD SPECIMEN / Unknown Venipuncture / Unknown 10/13/2024 9:30 AM JOB MOLDER 10/13/2024 9:48 AM JOB MOLDER us Buffy Esparza PA-C LAB - BLOOD ORDERABL ES Final Result [facility] [address] [facility], [address] [place] [address] from Last 3 Months or Most Recently Relevant to Health Maintenance Insurance [employer] MEDICARE ADVANTAGE [employer] MEDICARE ADVANTAGE Advance Directives For more information, please contact: [phone] Documents on File Type Date Recorded Patient Pediatric Audiologist Expl anation Advance Directives and Living Will 10/13/2024 Health Care Directiv e 11-27-2016 * Full Code (Latest Code Status on File) Date Activated Date Inactivated Comments 10/19/2024 10:48 AM 10/19/2024 6:40 PM All basic and advanced life-sustaining interventions are performed as appropriate Question Answer Comments Code status determined by: Discussion with patie nt/ legal decision maker Healthcare Agents on File Name Relationship Healthcare Agent [facility] Communication Sulaiman Chatterjee Son Health Care Agent John German Son-in-Law [facility] Health Care Agent Care Teams Certified First Assistant Relationship Specialty Start Date End Date Bisi Mcfarlane MD [facility] [address] [place] [address] PCP - General Family Medicine 09/18/24 Handy Noyola DO [address] [facility] [address] [place] [address] Director Integrated Pulmonary Disease 09/14/24 Jonh Jones MD [facility] [address] [facility] [address] [place] [address] Hematology & Oncology 09/18/24 Noble Freire MD [facility] [address] [facility] [address] [place] [address] Hematology & Oncology 09/18/24 Marii Mendiola, BEBETO Specialty Maitre D' Hematology & Oncology 10/06/24 Buffy Esparza PA-C [address] [place] [address] 4[address] [place] [address] Assigned Surgical Provider 10/30/24 Trev Montanez MD [address] [place] [address] [address] [place] [address] Assigned Heart and Vascular Surgical Provider 01/28/25
--- OUTSIDE RECORDS SUMMARY | 2025-03-18 06:02 | XMS_ITS | Encounter Summary ---
Author Organization [facility] Address [address], [place] [address] Care Team Providers Care Hematology Specialist Name Role Phone Nadia Benson PA-C Primary Care Provider [phone] Encounter Details Date Type Department Care Team (Late st Contact Info) Description 11/15/2019 Emergency Room External to ED PROVIDER NOTES Social History Tobacco Use Types Packs/Day Years Used Date Smoking Tobacco: Never Smokeless Tobacco: Never Alcohol Use Standard Drinks/Week Comments Not Currently 0 (1 standard drink = 0.6 oz pur e alcohol) AUDIT-C Answer Date Recorded Frequency of Alcohol Consumption Never 09/05/2019 Average Number of Drinks Not on file 019 Frequency of Binge Drinking Not on file 08/09 PHQ-2 Answer Date Recorded PHQ-2 Score 2 03/04/2019 Comments No Sex and Gender Information Value Date Recorded Sex Assigned at Not on file Legal Sex Female 5:25 AM CDT Gender Identity Not on file Sexual Orientation Not on file documented as of this encounter Functional Status documented as of this encounter Plan of Treatment Not on file documented as of this encounter Visit Diagnoses Not on filedocumented in this encounter Care Teams Hematology Specialist Relationship Specialty Start Date End Date Nadia Benson PA-C [address] [place], [place] [id number] PCP - General Physician Desktop Support Specialist 06/09/21 documented as of this encounter
--- OUTSIDE RECORDS SUMMARY | 2025-03-18 06:02 | XMS_ITS | Encounter Summary ---
Author Organization [place] Address [address] [place] [address]. [place] [address] Care Team Providers Care Auto Haulaway Driver Name Role Phone Handy Noyola DO Unavailable Bisi Mcfarlane MD Primary Care Provider [phone] John Jones MD Unavailable Noble Freire MD Unavailable [phone] Marii Mendiola RN Unavailable Unavailable Trev Montanez MD Unavailable Buffy Esparza PA-C Unavailable Trev Montanez MD Unavailable Encounter Details Date Type Department Care Team (Late st Contact Info) Description 10/13/2024 Team Conference [facility] [address] [place] [address] Marii Mendiola, RN Social History Tobacco Use Types Packs/Day Years Used Date Smoking Tobacco: Never Smokeless Tobacco: Never Alcohol Use Standard Drinks/Week Comments Not Currently 0 (1 standard drink = 0.6 oz pur e alcohol) Adolescent Education Answer Date Record ed Getting School Help Needed Not on file 08/14 Comments No Sex and Gender Information Value Date Recorded Sex Assigned at Not on file Legal Sex Female 3:03 AM COPY CHASER Gender Identity Not on file Sexual Orientation Not on file documented as of this encounter Progress Notes * Marii Mendiola RN - 10/13/2024 11:59 PM CST Pulmonary Nodule Conference Patient Name: Verónica Chatterjee Reason for conference discussion (brief overview): 84 year old female with a Schwannoma of the RIGHT chest wall. Saw Dr Montanez in clinic on 10/04/2024 and is planning for surgical removal. Recent CTscan also showed scattered indeterminate lung nodules. Patient was scheduled to see nodule clinic, Dr Montanez does not feel nodule clinic is needed at this time, instead is recommending follow-up in [address] chest 08/30/2024: 2.2 cm RIGHT lateral chest lesion in the 5th intercostal space. Scattered small indeterminate lung nodules. Specific Question: Observation? Pertinent Histology: --- Referring Physician: Trev Montanez MD The patient's case was presented at the multidisciplinary conference for the above noted reason. There was a consensus recommendation for the following actions: 3 month follow up with Chest CT and JOE Caruso for lung nodule follow-up. Case Lead: Trev Montanez MD Interventional Radiology Staff Present: N/A CHASER documented in this encounter Plan of Treatment Not on file documented as of this encounter Visit Diagnoses Not on filedocumented in this encounter Care Teams Auto Haulaway Driver Relationship Specialty Start Date End Date iBsi Mcfarlane MD [facility] [address] [place] [address] PCP - General Family Medicine 09/18/24 Handy Noyola DO [address] [id number] Solar Crew Member Pulmonary Disease 09/14/24 John Jones MD [facility] [address] [place] [address] [address] [place] [address] Hematology & Oncology 09/18/24 Noble Freire MD [facility] [address] [place] [address] [place] [address] Hematology & Oncology 09/18/24 Marii Mendiola, RN Specialty Onboarding Specialist Hematology & Oncology 10/06/24 Trev Montanez MD 420 [facility] [address] [place] [address] Assigned Heart and Vascular Provider 10/30/24 01/27/25 Buffy Esparza PA-C [address] [facility] 4TH [place] [address] Assigned Surgical Provider 10/30/24 Trev Montanez MD 420 [facility] [address] [place] [address] Assigned Heart and Vascular Surgical Provider 01/28/25 documented as of this encounter
--- OUTSIDE RECORDS SUMMARY | 2025-03-18 06:02 | XMS_ITS | Encounter Summary ---
Author Organization [place] Address [address] [facility] [place] [address] Care Team Providers Care Tax Appraiser Name Role Phone Handy Noyola DO Unavailable Bisi Mcfarlane MD Primary Care Provider [phone] John Jones MD Unavailable Noble Freire MD Unavailable [phone] Marii Mendiola RN Unavailable Unavailable Buffy Esparza PA-C Unavailable + [phone] Trev Montanez MD Unavailable Encounter Details Date Type Department Care Team (Latest Contact Info) Description 02/21/2025 Travel Social History Tobacco Use Types Packs/Day Years [...] on file Legal Sex Female 3:03 AM GRAZING EXAMINER Gender Identity Not on file Sexual Orientation Not on file documented as of this encounter Plan of Treatment Not on file documented as of this encounter Visit Diagnoses Not on filedocumented in this encounter Care Teams Tax Appraiser Relationship Specialty Start Date End Date Bisi Mcfarlane MD [facility] [address] [place] [address] PCP - General Family Medicine 09/18/24 Handy Noyola DO 420 [facility] [address] [place], [place] [address] Deputy Sheriff Chief Pulmonary Disease 09/14/24 John Jones MD [facility] [address] [place] [address] [address] [place] [address] Hematology & Oncology 09/18/24 Noble Freire MD [place] [facility] [address] [facility] [address] [place] [address] Hematology & Oncology 09/18/24 Marii Mendiola, BEBETO Specialty Marketing Coordinator Hematology & Oncology 10/06/24 Buffy Esparza PA-C [address] [facility] 4TH [place] [address] Assigned Surgical Provider 10/30/24 Trev Montanez MD 420 [facility] [address] [place] [address] Assigned Heart and Vascular Surgical Provider 01/28/25 documented as of this encounter
--- OUTSIDE RECORDS SUMMARY | 2025-03-18 06:02 | XMS_ITS | Encounter Summary ---
Author Organization [facility] Address [address] [place] [address]. [place] [address] Care Team Providers Care Aerographer Name Role Phone Handy Noyola DO Unavailable Bisi Mcfarlane MD Primary Care Provider [phone] John Jones MD Unavailable Noble Freire MD Unavailable [phone] Marii Mendiola RN Unavailable Unavailable Buffy Esparza PA-C Unavailable + [phone] Trev Montanez MD Unavailable Reason for Visit * Diagnostic Imaging Mammo (Routine) - Pending Review Specialty Diagnoses / Procedures Referred By Contac t Referred To Contact Radiology. Diagnoses Visit for screening mammogram Procedures MA Screening Bilateral w/ Yovani MA Screen Bilateral w/Yovani Bisi Mcfarlane MD [facility] [address] [place] [address] Phone: tel: fax: Referral ID Status Reason Start Date Expiration Date V isits Requested Visits Authorized [id number] Pending Review 02/12/2025 02/12/2026 1 1 Encounter Details Date Type Department Care Team (Late st Contact Info) Description 02/21/2025 2:21 PM CDT - 02/21/2025 11:59 PM CDT Hospital Encounter [facility] [address] [facility], [address] [place] [address] Bisi Mcfarlane MD [facility] [address] [place] [address] Visit for screening mammogram Discharge Disposition: Home or Self Care Social History Tobacco Use Types Packs/Day Years [...] on file 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 10/19/2024 cyanocobalamin (VITAMIN B-12) 1000 MCG SUBL sublingual tablet Place 1,000 mcg under the tongue daily. 02/13/2020 JARDIANCE 10 MG TABS tablet Take 25 mg by mouth daily. 10/26/2024 levothyroxine (SYNTHROID/LEVOT HROID) 50 MCG tablet Take 50 mcg by mouth every morning. 10/27/2018 Diclofenac Sodium 3 % GEL Apply 1 Application topically 2 times daily as needed. FOR BACK PAIN 5 glipiZIDE (GLUCOTROL XL) 10 MG 24 hr tablet Take 10 mg by mouth 2 times daily. 08/03/2024 5 Lidocaine (LIDOCARE) 4 % Patch Place 1 patch onto the skin every 24 hours. To prevent lidocaine toxicity, patient should be patch free for 12 hrs daily. 5 methocarbamol (ROBAXIN) 500 MG tabletIndication s:Schwannoma Take 1 tablet (500 mg) by mouth every 6 hours as needed for muscle spasms. 20 tablet 10/19/2024 5 oxyCODONE (ROXICODONE) 5 MG tabletIndication s:Schwannoma Take 0.5 tablets (2.5 mg) by mouth every 4 hours as needed for moderate pain or moderate to severe pain. 40 tablet 10/19/2024 5 polyethylene glycol (MIRALAX) 17 g packetIndication s:Schwannoma Take 17 g by mouth daily. 7 packet 10/20/2024 5 senna-docusate (SENOKOT-S/PERIC OLACE) 8.6-50 MG tabletIndication s:Schwannoma Take 1 tablet by mouth 2 times daily as needed for constipation. 14 tablet 10/19/2024 5 documented as of this encounter Plan of Treatment Not on file documented as of this encounter Procedures Procedure Name Priority Date/Time Associated Diagnosis Comments MA SCREENING BILATERAL W/ YOVANI Routine 02/21/2025 2:39 PM CDT Visit for screening mammogram documented in this encounter Results * MA Screening Bilateral w/ Yovani (02/21/2025 [...] There is no radiographic evidence of malignancy. Bisi Mcfarlane MD IMG MAMMOGRAPHY ORDERABLES Final Result documented in this encounter Visit Diagnoses Diagnosis Visit for screening mammogram Other screening mammogram documented in this encounter Care Teams Aerographer Relationship Specialty Start Date End Date Bisi Mcfarlane MD [facility] [address] [place] [address] PCP - General Family Medicine 09/18/24 Handy Noyola DO 420 [facility] 276 [place], [place] [address] Switchboard And Control Room Operator Pulmonary Disease 09/14/24 John Jones MD [facility] 5 [facility] 100 [place] [address] Hematology & Oncology 09/18/24 Noble Freire MD [facility] [address] [facility] 200 [place] [address] Hematology & Oncology 09/18/24 Marii Mendiola, BEBETO Specialty Joint Runner Hematology & Oncology 10/06/24 Buffy Esparza PA-C [address] [facility] 4TH Floor [place], [place] [address] Assigned Surgical Provider 10/30/24 Trev Montanez MD 420 [facility] 207 [place], [place] [address] Assigned Heart and Vascular Surgical Provider 01/28/25 documented as of this encounter
--- OUTSIDE RECORDS SUMMARY | 2025-03-18 06:02 | XMS_ITS | Encounter Summary ---
Author Organization [facility] Address [address] [facility] [place] [address] Care Team Providers Care Project Engineering Director Name Role Phone Handy Noyola DO Unavailable Bisi Mcfarlane MD Primary Care Provider [phone] John Jones MD Unavailable Noble Freire MD Unavailable [phone] Marii Mendiola RN Unavailable Unavailable Trev Montanez MD Unavailable Buffy Esparza PA-C Unavailable Trev Montanez MD Unavailable Encounter Details Date Type Department Care Team (Late st Contact Info) Description 12/07/2024 [facility] [address] [place] [address] [facility] Social History Tobacco Use Types Packs/Day Years [...] on file 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 Gender Identity Not on file Sexual Orientation Not on file documented as of this encounter Plan of Treatment Not on file documented as of this encounter Visit Diagnoses Not on filedocumented in this encounter Care Teams Project Engineering Director Relationship Specialty Start Date End Date Bisi Mcfarlane MD [facility] [address] [place] [address] PCP - General Family Medicine 09/18/24 Handy Noyola DO 420 [facility] 276 [place], [place] [address] Certified Pediatric Nurse Practitioner Pulmonary Disease 09/14/24 John Jones MD [facility] [address] [place] [address] 100 [place] [address] Hematology & Oncology 09/18/24 Noble Freire MD [facility] [address] [facility] 200 [place] [address] Hematology & Oncology 09/18/24 Marii Mendiola, BEBETO Specialty Geometry Teacher Hematology & Oncology 10/06/24 Trev Montanez MD 420 [facility] 207 [place] [address] Assigned Heart and Vascular Provider 10/30/24 01/27/25 Buffy Esparza PA-C [address] [place] [address] 4[address] [place] [address] Assigned Surgical Provider 10/30/24 Trev Montanez MD [address] [place] [address] 207 [place] [address] Assigned Heart and Vascular Surgical Provider 01/28/25 documented as of this encounter
--- OUTSIDE RECORDS SUMMARY | 2025-03-18 06:02 | XMS_ITS | Encounter Summary ---
Author Organization [facility] Address [address] [place] [address]. [place] [address] Care Team Providers Care Fruit Washer Name Role Phone Handy Noyola DO Unavailable Bisi Mcfarlane MD Primary Care Provider [phone] John Jones MD Unavailable Noble Freire MD Unavailable [phone] Marii Mendiola RN Unavailable Unavailable Buffy Esparza PA-C Unavailable + [phone] Trev Montanez MD Unavailable Reason for Visit * Diagnostic Imaging CT Scan (Routine) - Closed Specialty Diagnoses / Procedures Referred By Contac t Referred To Contact Radiology. Diagnoses Schwannoma of nerve of chest Procedures CT Chest w/o Contrast Trev Montanez MD 420 [facility] [address] [place] [address] Phone: tel: fax: Referral ID Status Reason Start Date Expiration Date Visits Re quested Visits Authorized [id number] Closed 10/10/2024 10/10/2025 1 1 Encounter Details Date Type Department Care Team (Latest Contact Info) Description 03/05/2025 10:40 AM CDT Ancillary Procedure [facility] [place] [address] [facility] 1st [place] [address] Trev Montanez MD 420 [facility] 207 [place] [address] Schwannoma of nerve of chest Social History Tobacco Use Types Packs/Day Years [...] on file 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 ARMEN FABIAN MD Trev Montanez MD IMG CT ORDERABLES Fin al Result documented in this encounter Visit Diagnoses Diagnosis Schwannoma of nerve of chest documented in this encounter Care Teams Fruit Washer Relationship Specialty Start Date End Date Bisi Mcfarlane MD [facility] [address] [place] [address] PCP - General Family Medicine 09/18/24 Handy Noyola DO 420 [facility], [facility] 276 [place], [place] [address] Kick Boxer Pulmonary Disease 09/14/24 John Jones MD [facility] 5 [facility] 100 [place] [address] Hematology & Oncology 09/18/24 Noble Freire MD [facility] [address] [facility] 200 [place] [address] Hematology & Oncology 09/18/24 Marii Mendiola, BEBETO Specialty Management Developer Hematology & Oncology 10/06/24 Buffy Esparza PA-C 909 [facility] 4TH [place] [address] Assigned Surgical Provider 10/30/24 Trev Montanez MD 420 [facility] 207 [place] [address] Assigned Heart and Vascular Surgical Provider 01/28/25 documented as of this encounter
--- OUTSIDE RECORDS SUMMARY | 2025-03-18 06:02 | XMS_ITS | Encounter Summary ---
Author Organization [facility] Address [address] [facility] 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 Gender Identity Not on file Sexual Orientation Not on file documented as of this encounter Plan of Treatment Not on file documented as of this encounter Visit Diagnoses Not on filedocumented in this encounter Care Teams Solar Thermal Installer Relationship Specialty Start Date End Date Bisi Mcfarlane MD [facility] [address] [place] [address] PCP - General Family Medicine 09/18/24 Handy Noyola DO 420 [facility] 276 [place] [address] Turbine Blade Assembler Pulmonary Disease 09/14/24 John Jones MD [facility] 5 [facility] 100 [place] [address] Hematology & Oncology 09/18/24 Noble Freire MD [facility] [address] [facility] 200 [place] [address] Hematology & Oncology 09/18/24 Marii Mendiola RN Specialty Geosciences Faculty Member Hematology & Oncology 10/06/24 Buffy Esparza PA-C 909 [facility] 4TH [place], [place] [address] Assigned Surgical Provider 10/30/24 Trev Montanez MD 420 [facility] 207 [place] [address] Assigned Heart and Vascular Surgical Provider 01/28/25 documented as of this encounter
--- OUTSIDE RECORDS SUMMARY | 2025-03-18 06:02 | XMS_ITS | Encounter Summary ---
Author Organization [facility] Address [address], [place] [address] Care Team Providers Care Clerical Clerk Name Role Phone Nadia Benson PA-C Primary Care Provider [phone] Encounter Details Date Type Department Care Team (Late st Contact Info) Description 08/13/2019 Outside Hospital External to [facility] HISTORY AND PHYSICAL Social History Tobacco Use Types Packs/Day Years [...] on filedocumented in this encounter Care Teams Clerical Clerk Relationship Specialty Start Date End Date Nadia Benson PA-C [address] [place] [address] PCP - General Physician Educational Diagnostician 06/09/21 documented as of this encounter
--- OUTSIDE RECORDS SUMMARY | 2025-03-18 06:02 | XMS_ITS | Encounter Summary ---
Author Organization [facility] Address [address] [place] [address]. [place] [address] Care Team Providers Care Account Information Clerk Name Role Phone Handy Noyola DO Unavailable [phone] Bisi Mcfarlane MD Primary Care Provider [phone] John Jones MD Unavailable Noble Freire MD Unavailable [phone] Marii Mendiola RN Unavailable Unavailable Buffy Esparza PA-C Unavailable [phone] Trev Montanez MD Unavailable Reason for Referral * Diagnostic Imaging CT Scan (Routine) - Authorized Specialty Diagnoses / Procedures Referred By Contac t Referred To Contact Radiology. Diagnoses Schwannoma of nerve of chest Procedures CT Chest w/o contrast Michaela Caruso APRN [facility] 420 [facility] [address] [place] [address] Phone: tel: fax: Referral ID Status Reason Start Date Expiration Date V isits Requested Visits Authorized [id number] Authorized 03/05/2025 03/05/2026 1 1 Reason for Visit * Reason Comments Oncology Clinic Visit RTN Schwannoma of nerve of chest Encounter Details Date Type Department Care Team (Late st Contact Info) Description 03/05/2025 11:45 AM CDT Oncology Visit [facility] 9[address] 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 Gender Identity Not on file Sexual Orientation Not on file documented as of this encounter Last Filed Vital Signs Vital Sign Reading Time Taken Comments Blood Pressure 119/67 03/05/2025 11:38 AM CDT Pulse 72 03/05/2025 11:38 AM CDT Temperature 36.4 C (97.5 F) 03/05/2025 11:38 AM CDT Respiratory Rate 20 03/05/2025 11:38 AM CDT Oxygen Saturation 97% 03/05/2025 11:38 AM CDT Inhaled Oxygen Concentration - - Weight 62.1 kg (137 lb) 03/05/2025 11:38 AM CDT Height - - Body Mass Index 25.06 10/18/2024 5:53 AM EXECUTIVE KITCHEN MANAGER documented in this encounter Progress Notes * Michaela Caruso APRN FUEL RETROFITTING TECHNICIAN - 03/05/2025 11:45 AM CDT THORACIC SURGERY FOLLOW UP VISIT I saw Ms. Chatterjee in follow-up today. The clinical summary follows: PREOP DIAGNOSIS Right intercostal nerve schwannoma PROCEDURE Right subxiphoid thoracoscopic resection of intercostal schwannoma DATE OF PROCEDURE 10/18/2024 HISTOPATHOLOGY Soft tissue, right intercostal nerve schwannoma, excision: - Schwannoma - Negative for malignancy COMPLICATIONS None INTERVAL STUDIES CT chest 03/05/2025: final report pending at time of clinic visit. To my review it appears as expected with post surgical changes. I do not see any evidence of recurrence. Past Medical History: Diagnosis Date Gastroesophageal reflux disease with esophagitis Headache History of colonic polyps Hypertension Hypothyroidism Memory loss Osteoporosis Pulmonary nodules Schwannoma of nerve of chest Tremor Type 2 diabetes mellitus (H) Past Surgical History: Procedure Laterality Date APPENDECTOMY BREAST SURGERY Right 2013 lumpectomy and re-excision of margins CHOLECYSTECTOMY ESOPHAGOSCOPY, GASTROSCOPY, DUODENOSCOPY (EGD), COMBINED N/A 06/05/2020 Procedure: ESOPHAGOGASTRODUODENOSCOPY (EGD); Surgeon: Yefri Hernandez MD; [facility] RIGHT Subxiphoid THORACOSCOPIC RESECTION OF INTERCOSTAL NERVE SCHWANNOMA, Right - Chest Right 10/18/2024 Dr. Tarik [facility]IR[facility] AND BSO THORACOSCOPY Right 10/18/2024 Procedure: RIGHT Subxiphoid THORACOSCOPIC RESECTION OF INTERCOSTAL NERVE SCHWANNOMA; Surgeon: Trev Montanez MD; Location: [facility] OR TOTAL HIP ARTHROPLASTY Bilateral Social History Socioeconomic History Marital status: Spouse name: Not on file Number of children: Not on file Years of education: Not on file Highest education level: Not on file Occupational History Not on file Tobacco Use Smoking status: Never Smokeless tobacco: Never Substance and Sexual Activity Alcohol use: Not Currently Drug use: Never Sexual activity: Not on file Other Topics Concern Not on file Social History Narrative Not on file Social Drivers of Health Financial Resource Strain: Not on file Food Insecurity: Not on file Transportation Needs: Not on file Physical Activity: Not on file Stress: Not on file Social Connections: Not on file Interpersonal Safety: Low Risk (10/18/2024) Interpersonal Safety Do you feel physically and emotionally safe where you currently live?: Yes Within the past 12 months, have you been hit, slapped, kicked or otherwise physically hurt by someone?: No Within the past 12 months, have you been humiliated or emotionally abused in other ways by your partner or ex-partner?: No Housing Stability: Not on file SUBJECTIVE Verónica is doing well. She denies pain, cough or shortness of breath. OBJECTIVE BP 119/67 (BP Location: Left arm, Patient Position: Sitting, Cuff Size: Adult Regular) Pulse 72 Temp 97.5 ??F (36.4 ??C) (Oral) Resp 20 Wt 62.1 kg (137 lb) SpO2 97% BMI 25.06 kg/m?? From a personal perspective, her son Nitesh, has season tickets to the [email or web address] and recently took her to a game. She had a great time. IMPRESSION Verónica is an 84 year-old female status post right subxiphoid thoracoscopic resection of intercostal schwannoma. Final pathology is consistent with a benign schwannoma. She is here with a new baseline chest CT. I reviewed my interpretation of today's CT results. I will await the final radiology report and will call her if there are any concerning findings. I did explain the in rare cases, a Schwannoma may return so I do recommend annual CT surveillance. PLAN I spent 15 min on the date of the encounter in chart review, patient visit, review of tests, documentation and/or discussion with other providers about the issues documented above. I reviewed the plan as follows: Follow up in 1 year with a new baseline chest CT prior All questions were answered and the patient and present family were in agreement with the plan. I appreciate the opportunity to participate in the care of your patient and will keep you updated. Sincerely, JOE Duarte documented in this encounter Nursing Notes * Zaria Vaca - 03/05/2025 11:45 AM CDT Oncology Rooming Note March 05, 2025 11:54 AM Verónica Chatterjee is a 84 year old female who presents for: Chief Complaint Patient presents with Oncology Clinic Visit RTN Schwannoma of nerve of chest Initial Vitals: BP 119/67 (BP Location: Left arm, Patient Position: Sitting, Cuff Size: Adult Regular) Pulse 72 Temp 97.5 ??F (36.4 ??C) (Oral) Resp 20 Wt 62.1 kg (137 lb) SpO2 97% BMI 25.06 kg/m?? Estimated body mass index is 25.06 kg/m?? as calculated from the following: Height as of 10/18/24: 1.575 m (5' 2). Weight as of this encounter: 62.1 kg (137 lb). Body surface area is 1.65 meters squared. No Pain (0) Comment: Data Unavailable No LMP recorded. Patient has had a hysterectomy. Allergies reviewed: Yes Medications reviewed: Yes Medications: Medication refills not needed today. Pharmacy name entered into Qoof: [id number] - [place], [place] - [address] [address] Frailty Screening: Is the patient here for a new oncology consult visit in cancer care? 2. No PHQ9: Did this patient require a PHQ9?: No Clinical concerns: Requested to have Miralax, Senna, Oxycodone, Robaxin, Lidocaine patch, glipizideand Voltaren gel removed from medication list. Zaria Vaca documented in this encounter Plan of Treatment Scheduled Orders Name Type Priority Associated Diagnoses Orde r Schedule CT Chest w/o contrast Imaging Routine Schwannoma of nerve of chest Expected: 03/05/2025 (Approximate), Expires: 03/05/2026 documented as of this encounter Visit Diagnoses Diagnosis Schwannoma of nerve of chest- Primary documented in this encounter Care Teams Account Information Clerk Relationship Specialty Start Date End Date Bisi Mcfarlane MD [facility] [address] [place] [address] PCP - General Family Medicine 09/18/24 Handy Noyola DO 420 [facility] [address] [place] [address] Fiberglass Roller Pulmonary Disease 09/14/24 John Jones MD [facility] [address] [place] [address] [place] [address] [place] [address] Hematology & Oncology 09/18/24 Noble Freire MD [facility] [address] [place] [address] [place] [address] Hematology & Oncology 09/18/24 Marii Mendiola, BEBETO Specialty Hardwood Floor Sander Hematology & Oncology 10/06/24 Buffy Esparza PA-C 909 [facility] 4TH [place] [address] Assigned Surgical Provider 10/30/24 Trev Montanez MD 420 [facility] [address] [place], [place] [address] Assigned Heart and Vascular Surgical Provider 01/28/25 documented as of this encounter
--- OUTSIDE RECORDS SUMMARY | 2025-03-18 06:02 | XMS_ITS ---
Author Name [facility], [email or web address] Address [address] [facility] [address] [address] Organization [facility] Address [address] [facility] [address] [address] Care Team Providers Care Dramatic Arts Historian Name Role Phone John Jones Unavailable Unavailable Allergies and Adverse Reactions Medication/Group Name Reaction Severity Date Byjccew-Fja-Huv Reductase Inhibitors Muscle pain 04/23/2014 Proton Pump Inhibitors Angioedema 04/23 gabapentin Rash 04/23/2014 omeprazole Angioedema 04/23/2014 Plan Date Type Value 12/18/2020 APPOINTMENT [facility] - [facility] 12/18/2020 APPOINTMENT [facility] Reason for Visit [facility] - [facility] Encounters Date Name 12/18/2020 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) Immunizations Date Name Route Dose Instructions Refusal Reason Stat us Flu vaccine - Adult Patient declined/rejected Not Administered Medications Date Name Route Dose Frequency Instructions Start Date End Date Status Cyanocobalamin Oral PO 1.0 daily active Levothyroxine Oral PO 1.0 TABLET (S) daily active Aspirin Oral PO 1.0 TABLET (S) daily active [facility]-3 Fatty Acids Oral PO 1.0 CAPSUL E(S) daily active Miscellaneous Drug as directed 1.0 STRIP( S) Test as directed active Miscellaneous Drug as directed 1.0 STRIP( S) Test as directed active Calcium Carb-Cholecalcife rol Oral 500 mg-10 mcg (400 unit) PO 1.0 TABLET (S) BID active Lisinopril Oral PO 1.0 TABLET (S) daily active Problems Diagnosis Status Date of Diagnosi s Osteoporosis (disorder) Active 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 Diabetes mellitus type 2 (disorder) Active 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
--- OUTSIDE RECORDS SUMMARY | 2025-03-18 06:02 | XMS_ITS | Encounter Summary ---
Author Organization Formerly [facility] Address [address], [place] [address] Care Team Providers Care Trichologist Name Role Phone Nadia Benson PA-C Primary Care Provider [phone] Encounter Details Date Type Department Care Team [...] on filedocumented in this encounter Care Teams Trichologist Relationship Specialty Start Date End Date Nadia Benson PA-C [address] [place] [address] PCP - General Physician Registration Rep 06/09/21 documented as of this encounter
--- OUTSIDE RECORDS SUMMARY | 2025-03-18 06:03 | XMS_ITS | Encounter Summary ---
Author Organization [facility] Address [address] [place] [address] Care Team Providers Care Acid Wash Operator Name Role Phone Nadia Benson PA-C Primary Care Provider [phone] Encounter Details Date Type Department Care Team (Latest Contact Info) Description 02/14/2019 Correspondence Neurology at [facility] [address] [place] [address] Yris Lafleur, GAS ENGINE OPERATOR, CORPORATE FITNESS PROGRAM COORDINATOR [address] [facility] [address] [place] [address] JUAN DANIEL COGNITIVE ASSESSMENT (MOCA) Social History Tobacco Use Types Packs/Day Years Used Date Smoking Tobacco: Never Assessed Comments No Sex and Gender Information Value Date Recorded Sex Assigned at Not on file Legal Sex Female 5:25 AM CDT Gender Identity Not on file Sexual Orientation Not on file documented as of this encounter Plan of Treatment Not on file documented as of this encounter Visit Diagnoses Not on filedocumented in this encounter Care Teams Acid Wash Operator Relationship Specialty Start Date End Date Nadia Benson PA-C [address] [place], [place] [id number] PCP - General Physician Food Technologist 06/09/21 documented as of this encounter
--- OUTSIDE RECORDS SUMMARY | 2025-03-18 06:03 | XMS_ITS | CCD ---
Author Name Interface, [facility] Address [address] [address] Organization [facility] Address [address] [address] Care Team Providers Care Program Engineer Name Role Phone John Jones Unavailable Unavailable oNble Freire Unavailable Unavailable Care Plan Date Type Value 07/16/2020 LABORDER CBC w/ auto diff 07/16/2020 LABORDER Mammogram, scree cecilia w/ 3D Reason for Visit [facility] - [facility] - [facility] Encounters Date Name 12/18/2020 [facility] - [facility] - [facility] Functional Status Date Name Score 08/31/2019 Karnofsky performance status 100 06/18/2015 Karnofsky performance status 100 05/07/2015 Karnofsky performance status 100 11/06/2014 Karnofsky performance status 100 04/23/2014 Karnofsky performance status 100 Medications Date Name Route Dose Frequency Instructions Start Date End Date Status Cyanocobalamin Oral PO 1.0 daily active Levothyroxine Oral PO 1.0 TABLET (S) daily active [place]-3 Fatty Acids Oral PO 1.0 CAPSUL E(S) daily active Lisinopril Oral PO 1.0 TABLET (S) daily active Miscellaneous Drug as directed 1.0 STRIP( S) Test as directed active Metformin Oral PO 1.0 TABLET (S) bid 2018 inactive Miscellaneous Drug as directed 1.0 STRIP( S) Test as directed active Calcium Carb-Cholecalcif severo Oral 500 mg-10 mcg (400 unit) PO 1.0 TABLET (S) BID active Aspirin Oral PO 1.0 TABLET (S) daily active Problems Diagnosis Status Date of Diagnosi s Osteoporosis (disorder) Active Body mass index (BMI) 25.0-25.9, adult Inactive Body mass index (BMI) 26.0-26.9, adult Inactive Body mass index (BMI) 28.0-28.9, adult Inactive Body mass index (BMI) 29.0-29.9, adult Inactive Body mass index (BMI) 30.0-30.9, adult Inactive 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 Diabetes mellitus type 2 (disorder) Active Nightmares (finding) Active Multiple joint pain (finding) Active Body mass index (BMI) 27.0-27.9, adult Inactive Disorder of vagina (disorder) Active Bleeding from vagina (finding) Active Atrophic vaginitis (disorder) Active Social History Date Name Value 12/18/2020 Sex Female
--- OUTSIDE RECORDS SUMMARY | 2025-03-18 06:03 | XMS_ITS | Clinical Summary ---
[facility] Address [address], [place] [address] Care Team Providers Care Personnel Analyst Name Role Phone Nadia Benson PA-C Primary Care Provider [phone] Source Comments You are receiving this document as you are listed as the primary care provider,follow-up provider, or the patient has been referred to you for consultation.This is in compliance with the Medicare and[facility] Hospital[facility] EHR Incentive Program,which states Providers who transition their patient to another setting of careor provider of care or refers their patient to another provider of care shouldprovide summary care record for each transition of care or referral. [employer] Allergies Active Allergy Reactions Criticality Noted Date Comments Gabapentin Rash 11/27/2013 Omeprazole Angioedema High 05/31/2013 Statins Myalgias 04/16/2009 Medications [place]-3 Fatty Acids (FISH OIL) 1000 MG capsule Take by mouth. 4 Active aspirin, enteric-coated 81 MG enteric coated tablet Take by mouth. A ctive Calcium Carb-Cholecalcif severo 500-400 MG-UNIT CHEW Take by mouth. Ac tive cyanocobalamin [address] 1 Tablet under tongue daily. 100 Tablet 2 0 Active Additional Information Patient not taking.Reported on 01/29/2023 fluticasone propionate (FLONASE) 50 MCG/ACT nasal solutionIndicati ons:Seasonal allergic rhinitis, unspecified trigger SHAKE LIQUID AND USE 2 SPRAYS IN EACH NOSTRIL DAILY 16 g 2 1 Active Additional Information Patient not taking.Reported on 01/16/2022 famotidine (PEPCID) 20 MG tablet Take 1 Tablet by mouth two times a day. 180 Tablet 1 Active Additional Information Patient not taking.Reported on 01/29/2023 diclofenac (VOLTAREN) 1 % gelIndications:R ight shoulder pain, unspecified chronicity Apply 4 g to skin 4 times daily as needed. 200 g 2 2 Active Additional Information Patient not taking.Reported on 01/29/2023 levothyroxine (SYNTHROID) 50 MCG tablet TAKE 1 TABLET BY MOUTH DAILY 90 Tablet 3 Active lisinopril (ZESTRIL) 5 MG tabletIndication s:Hypertension, unspecified type (HRC) TAKE 1 TABLET BY MOUTH DAILY 90 Tablet 3 Active Active Problems Patient Care Coordination No te Formatting of this note migh t be different from the original. Kiln Car Unloader - Primary Care Name & Phone Number: BEBETO Knott , Care Coordination Focus: safety,medications Living Situation: Private home - apartment. Patient lives alone. 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 Chronic headache 08/13/2019 Essential tremor 08/13/2019 Insomnia 06/20/2019 B12 nutritional deficiency 01/13/2019 Colon polyps 01/13/2019 Overview (01/13/2019): Colonoscopy 06/10/2005 with polyps, repeat 09/2010 with adenomatous polyps, repeat 5 years Hyperlipidemia 01/13/2019 Elevated TSH 05/21/2017 Microalbuminuria 02/28/2016 Type 2 diabetes mellitus, [facility] long-term current use of insulin 05/20/2015 Malignant neoplasm of right female breast 2013 Porokeratosis 12/12/2013 History of osteoporosis 11/27/2013 Overview (01/13/2019): Intol bisphosphonate Esophageal reflux 01/22/2013 Overview (01/13/2019): 01/2013 EGD with mild gastritis, no H pylori Hip arthritis 04/20/2011 Resolved Problems Problem Noted Date Diagnosed Date Resolved Date Shaking 08/13/2019 01/16/2022 Immunizations Immunization Administration Dates Next Due Flu Vac (3+ yrs) 09/29/2013, 3,07/22/2011,2009,10/24/2009,08/09/2008,08/25/2007 Flu Vac Preserv Free (3+yrs) 07/22/2011,07/21/20 10,10/24/2009 Influenza IIV3 (Trivalent) F mike Highdose, 65+ Yrs (41434) 08/04/2019,10/02/2016,07/31/2014 Influenza IIV4 (Quadrivalent ) 0.5mL (23843) 08/07/2015 Influenza IIV4 (Quadrivalent ) Fluad, 65+ Yrs 09/04/2021 Influenza aIIV3 65+ Years (Fluad) 09/02/2018, Influenza, Unspecified Formulation 09/25/1998 Moderna Monovalent 12+ 01/24/2021,12/27/2020 Moderna Monovalent Booster 12+ 05/08/2022,2020 PCV13 (Prevnar) 11/22/2015 PPSV23 (Pneumovax) 11/08/2008 Td 09/13/2006,08/08/2006 Tdap 11/24/2012 Zoster (Zostavax) 09/12/2007 Social History Tobacco Use Types Packs/Day Years Used Date Smoking Tobacco: Never Smokeless Tobacco: Never Alcohol Use Standard Drinks/Week Comments Not Currently 0 (1 standard drink = 0.6 oz pur e alcohol) AUDIT-C Answer Date Recorded Q1: How often do you have a drink containing alc ohol? Never 04/19/2020 Average Number of Drinks Not on file 020 Frequency of Binge Drinking Not on file 04/08 PHQ-2 Answer Date Recorded PHQ-2 Score 2 01/29/2023 Comments No Sex and Gender Information Value Date Recorded Sex Assigned at Not on file Legal Sex Female 5:25 AM CDT Gender Identity Not on file Sexual Orientation Not on file Last Filed Vital Signs Vital Sign Reading Time Taken Comments Blood Pressure 132/73 01/29/2023 1:48 PM CDT Pulse 68 01/29/2023 1:48 PM CDT Temperature 36.4 C (97.5 F) 05/08/2022 11:17 AM CDT Respiratory Rate 12 05/08/2022 11:17 AM CDT Oxygen Saturation 95% 06/18/2021 11:15 AM CDT Inhaled Oxygen Concentration - - Weight 65.9 kg (145 lb 3.2 oz) 01/29/2023 1:48 P M CDT shoes Height 158 cm (5' 2.2) 01/29/2023 1:48 PM CDT s rafael Body Mass Index 26.39 01/29/2023 1:48 PM CDT Plan of Treatment Health Maintenance Due Date Last Done Comments Diabetes: Foot Exam 1940 Zoster/Shingles Vaccine (2 of 3) 11/07/2007 09/12/2007 RSV Vaccine (1 - 1-dose 75+ series) 2013 Diabetes: Eye Exam 04/08/2020 04/08/2019 (Completed) Diabetes: HGBA1C 07/19/2022 01/16/2022, 09/2021, 04/19/2020, Additional history exists DTaP/Tdap/Td Vaccine (2 - Tdap) 11/24/2022 11/24/2012, 09/13/2006, 08/08/2006 Diabetes: Creatinine 01/16/2023 01/16/2022, 04/19/2020, 02/14/2019 Med Monitoring TSH 01/16/2023 01/16/2022, 0 12/19/2020, 08/04/2019, Additional history exists COVID-19 Vaccine ( season) 2024 05/08/2022, 10/28/2021, 01/24/2021, Additional history exists Medicare Annual Wellness Visit 11/08/2024 01/29/2023, 01/16/2022, 02/13/2021, Additional history exists Diabetes: Lipid Panel 11/22/2024 11/22/2019 Influenza Vaccine (Season Ended) 2025 08/31/2023, 09/04/2021, 08/04/2019, Additional history exists Pneumococcal Vaccine 50+ Yrs Completed 11/22/2015, 11/08/2008 Dexa Completed 02/24/2018, 02/06 (Completed) HepA Vaccine Aged Out No longer eligi ble based on patient's age to complete this topic HepB Vaccine Aged Out No longer eligi ble based on patient's age to complete this topic Hib Vaccine Aged Out No longer eligi ble based on patient's age to complete this topic IPV (Polio) Vaccine Aged Out No longe r eligible based on patient's age to complete this topic MCV4 Vaccine Aged Out No longer eligi ble based on patient's age to complete this topic Meningococcal B Vaccine Aged Out No l onger eligible based on patient's age to complete this topic Procedures Procedure Name Priority Date/Time Associated Diagnosis Comments TSH, SENSITIVE Routine 01/16/2022 1:48 PM [employer] Hypothyroidism, unspecified type BASIC METABOLIC PANEL Routine 01/16/2022 1:48 PM [employer] Hypertension, unspecified type HGB A1C Routine 01/16/2022 1:48 PM [employer] Type 2 diabetes mellitus without complication, without long-term current use of insulin (HRC) LIPID PANEL & DIRECT LDL (IF NEEDED) Routine 11/22/2019 2:14 PM [employer] Hyperlipidemia, unspecified hyperlipidemia type from Last 3 Months or Most Recently Relevant to Health Maintenance Results * TSH (01/16/2022 1:48 PM [employer]) TSH, Sensitive 2.34 0.30 - 4.50 uIU/mL 01/16/2022 7:34 PM [employer] [facility] Blood Venipuncture / Unknown 01/16/2022 1:48 PM [employer] 01/16/2022 1:48 PM [employer] us Nadia Benson PA-C LAB_1 Final Resul t [facility] [address] [phone] * (ABNORMAL) Basic Metabolic Panel (01/16/2022 1:48 PM [employer]) Sodium 138 136 - 145 mmol/L 01/16/2022 7:18 PM [facility] [employer] [facility] Potassium 4.6 3.5 - 5.1 mmol/L 01/16/2022 7:[address] [facility] Chloride 105 98 - 109 mmol/L 01/16/2022 7:[address] [facility] CO2 27 20 - 29 mmol/L 01/16/2022 7:[address] [facility] Anion Gap 6(L) 7 - 16 mmol/L 01/16/2022 7:[address] [facility] Calcium 9.7 8.4 - 10.4 mg/dL 01/16/2022 7:[address] [facility] BUN 24 7 - 26 mg/dL 01/16/2022 7:[address] [facility] Creatinine 0.97 0.55 - 1.02 mg/dL 01/16/2022 7:[address] [facility] GFR, Estimated 58(L) >60 mL/min/1. 73m2 01/16/2022 7:[address] [facility] Glucose 120(H) 70 - 100 mg/dL 01/16/2022 7:[address] [facility] Comment:The given reference range is for the fasting state. Non-fasting reference range for glucose is 70 - 180 mg/dL. Hours Fasting N/A 01/16/2022 7:18 PM [facility] Blood Venipuncture / Unknown 01/16/2022 1:48 PM [employer] 01/16/2022 1:48 PM [facility] - 01/16/2022 7:18 PM [employer] The National Kidney Disease Education Program suggests measuring Cystatin C in patients with eGFRcrea of 45 to 59 ml/min/1.73^2 who do not have other markers of kidney damage (i.e. elevated urine Albumin/Creatinine Ratio or a prior Cystatin C confirming the presence of chronic kidney disease). us Nadia Benson PA-C LAB_1 Final Resul t [facility] [address] [address], [facility] [phone] [facility] [address] [place] [address] [phone] * (ABNORMAL) Hgb A1C (01/16/2022 1:48 PM [employer]) Hemoglobin A1C 7.0(H) <=5.6 % 01/16/2022 7:46 PM [facility] Blood Venipuncture / Unknown 01/16/2022 1:48 PM [employer] 01/16/2022 1:48 PM [employer] [facility] - 01/16/2022 7:46 PM [employer] For patients not previously diagnosed with diabetes: 5.7-6.4%: Increased risk for diabetes 6.5% and greater: Diagnostic for diabetes For patients diagnosed with diabetes: <8.0%: Goal of therapy for ages 18-75 Clinicians may recommend a higher or lower goal for specific individuals. us Nadia Benson PA-C LAB_1 Final Resul t [facility] [address] [phone] * (ABNORMAL) Lipid Panel and Direct LDL(If Needed) (11/22/2019 2:14 PM [employer]) Cholesterol 176 0 - 199 mg/dL 11/22/2019 9:57 PM [facility] Triglyceride 153(H) <=149 mg/dL 11/22/2019 9:[address] [facility] HDL Cholesterol 31(L) >=40 mg/dL 11/22/2019 9:[address] [facility] LDL, Calculated 114 <130 mg/dL 11/22/2019 9:[address] [facility] Non HDL Chol, Calculated 145 mg/dL 11/22/2019 9:[address] [facility] Cholesterol/HDL Ratio 5.7 11/22/2019 9:[address] [facility] Hours Fasting 0 11/22/2019 9:57 PM [facility] Blood Venipuncture / Unknown 11/22/2019 2:14 PM [employer] 11/22/2019 2:20 PM [employer] us Maya Fuentes MD LAB_1 Final Result [facility] [address] [address], [facility] [phone] [facility] [address] [place] [address], [facility] [phone] from Last 3 Months or Most Recently Relevant to Health Maintenance Insurance [phone] [place] [address] [facility] MEDICARE ADVANTAGE [phone] [place] [address] Care Teams Personnel Analyst Relationship Specialty Start Date End Date Nadia Benson PA-C [address] [place] [address] PCP - General Physician Musculoskeletal Physician 06/09/21
--- OUTSIDE RECORDS SUMMARY | 2025-03-18 06:03 | XMS_ITS | Clinical Summary ---
Author Organization [email or web address] Address [facility] [place] [address] Care Team Providers Care Numberer And Wirer Name Role Phone Simmons, Dawood Sahu PA-C Primary Care Provider [phone] Allergies Active Allergy Reactions Criticality Noted Date Comments Gabapentin Rash 11/27/2013 Omeprazole Angioedema 05/31/2013 Bfghcsb-Xkb-Aht Reductase Inhibitors Myalgia 04/16/2009 Medications ASPIRIN 81 MG TAB, DELAYED RELEASE Take 81 mg by mouth at bedtime. Active CALCIUM 500 + D 500 MG (1,250 MG)-400 UNIT CHEWABLE TAB Take 1 tablet by mouth 2 times daily. Active omega-3 fatty acids-vitamin E (FISH OIL) 1,000 mg cap Take 1 capsule by mouth once daily. 0 4 Active cyanocobalamin (VITAMIN B-12) 1,000 mcg/mL injectionIndica tions:B12 nutritional deficiency Inject 1 mL intramuscular every 4 weeks. 1 mL 8 5 Active lisinopril (PRINIVIL; ZESTRIL) 5 mg tabletIndicatio ns:Microalbumin uria Take 1 tablet by mouth once daily. 90 tablet 3 8 Active metFORMIN (GLUCOPHAGE) 500 mg tabletIndicatio ns:Type 2 diabetes mellitus with microalbuminuri a, without long-term current use of insulin (HC) Take 1 tablet by mouth 2 times daily with meals. 180 tablet 3 8 Active levothyroxine (SYNTHROID) 50 mcg tabletIndicatio ns:Hypothyroidi sm (acquired) TAKE 1 TABLET BY MOUTH BEFORE BREAKFAST 90 tablet 2 8 Active acetaminophen SR (TYLENOL ARTHRITIS) 650 mg Extended-Releas e tablet Take 650 mg by mouth every 8 hours if needed. Max acetaminophen dose: 4000mg in 24 hrs. Active propranolol (INDERAL) 20 mg tabletIndicatio ns:Essential tremor Take 1 tablet by mouth 2 times daily. 60 tablet 9 Active Hospital, Clinic, or Other Facility Administered Medication Ordered Dose Route Frequency Start Date End Date Status cyanocobalamin 1,000 mcg injection (VITAMIN B12)Indications:B12 nutritional deficiency 1000 mcg IM Q 4 WEEKS (28 days) 06/04/2014 Active Active Problems Problem Noted Date Diagnosed Date Shaking of whole body with weakness 08/13/2019 Essential tremor 08/13/2019 Chronic headache 08/13/2019 Elevated TSH 05/21/2017 Microalbuminuria 02/28/2016 Type 2 diabetes mellitus with microalbuminuria 0 05/20/2015 Malignant neoplasm of right female breast 2013 Porokeratosis 12/12/2013 History of osteoporosis 11/27/2013 Overview (11/27/2013): Intol bisphosphonate Esophageal reflux 01/22/2013 Overview (01/22/2013): 01/2013 EGD with mild gastritis, no H pylori Hip arthritis 04/20/2011 Hyperlipidemia B12 nutritional deficiency Colon polyps Overview (03/16/2011): Colonoscopy 06/10/2005 with polyps, repeat 09/2010 with adenomatous polyps, repeat 5 years Insomnia Resolved Problems Problem Noted Date Diagnosed Date Resolved Date Anticoagulation monitoring, special range 08/12/2011 09/08/2011 Immunizations Immunization Administration Dates Next Due Influenza, High-dose Inactivated 10/02/2016,07/10 Influenza, IIV3 (Age >=3 years) 09/29/20 13,11/18/2012,07/22/2011,2009,10/24/2009 Influenza, IIV4 08/07/2015 Influenza, Inactivated IIV3 (Age 65+ Years) Preserv Free 09/02/2018,09/03/2017 Pneumococcal Poly,23-Valent (Pneumovax) 11/08/2008 Pneumococcal conj 13-Valent (Prevnar 13) 11/22/2015 Td (Age >=7 Years) 08/08/2006 Tdap 11/24/2012 Zoster (Zostavax-ZVL, live) 09/08/2007 Family History Medical History Relation Name Comments Cancer-prostate Brother 2 Bernabe 60'S YRS OLD Cancer Brother 3 Tad kidney/bladder cancer Diabetes Brother 4 Bill Cancer-breast Sister 3 Charissa Cancer Sister 4 Sully Bone/ Lung Canc er Cancer Sister 5 Bam lung Unknown Sister 6 ardelle Cancer-colon No Family History Cancer-ovarian No Family History Relation Name Status Comments Brother 1 (Age 72) Brother 2 Bernabe Brother 3 Tad Brother 4 Bill Father (Age 65) parkinson' s, CAD Mother (Age 85) DM, old ag e Sister 1 (Age 86) lung cance r Sister 2 (Age 82) Sister 3 Charissa Sister 4 Sully Sister 5 Bam Sister 6 ardelle Social History Tobacco Use Types Packs/Day Years Used Date Smoking Tobacco: Never Smokeless Tobacco: Never Tobacco Cessation:Counseling Given: Yes Alcohol Use Standard Drinks/Week Comments No 0 (1 standard drink = 0.6 oz pur e alcohol) PHQ-2 Answer Date Recorded PHQ-2 Score 0 01/08/2019 Comments No Sex and Gender Information Value Date Recorded Sex Assigned at Not on file Legal Sex Female 6:11 AM RN FIELD Gender Identity Not on file Sexual Orientation Not on file 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 Not on file Not on file Obstetrics History Last Filed Vital Signs Vital Sign Reading Time Taken Comments Blood Pressure 111/50 11/15/2019 3:11 PM RN FIELD Pulse 53 11/15/2019 3:11 PM RN FIELD Temperature 36.7 C (98.1 F) 11/15/2019 10:09 AM RN FIELD Respiratory Rate 18 11/15/2019 10:09 AM RN FIELD Oxygen Saturation 96% 11/15/2019 3:11 PM RN FIELD Inhaled Oxygen Concentration - - Weight 66.2 kg (146 lb) 11/15/2019 10:09 AM RN FIELD Height 157.5 cm (5' 2) 11/15/2019 10:09 AM RN FIELD Body Mass Index 26.7 11/15/2019 10:09 AM RN FIELD Plan of Treatment Health Maintenance Due Date Last Done Comments Zoster (shingles) series for age 50+ (2 of 3) 11/03/2007 09/08/2007 RSV vaccine for adults or (1 - 1-dose 75+ series) 2013 Medicare Wellness for age 65+ 05/20/2016 05/20/2015 BMI (ht and wt on same day) for age 18+ 05/18/2019 05/18/2018, 09/03/2017, 05/21/2017, Additional history exists Depression screening for age 12+ 05/27/2019 05/27/2018, 02/05/2017, 02/02/2017, Additional history exists Tetanus booster 11/24/2022 11/24/2012, 08/08/2006 COVID-19 vaccine series ( season) 2024 05/08/2022, 10/28/2021 Influenza Vaccine (Season Ended) 2025 09/02/2018, 09/03/2017, 10/02/2016, Additional history exists Tdap Completed 11/24/2012 Pneumococcal series for age 50+ Completed 6, 11/08/2008 DEXA/DXA scan for age 65+ Completed 2017, 01/29/2015, 05/17/2014, Additional history exists Medical Devices Implanted Type Area Garden Center Manager Device Identifier Shelf Expiration Date Model / Serial / Lot Shell Acetab 50mm [id number] Nephew - [id number] Implanted:Qty: 1 on 08/10/2011 at [facility] Ortho Total Joint Left: Hip [employer] [id number]# / / [id number] Screw [id number] Body & Soul Nephew - [id number] Implanted:Qty: 1 on 08/10/2011 at [facility] Left: Hip [employer] [id number]# / / [id number] Screw [id number] Muniz Nephew - [id number] Implanted:Qty: 1 on 08/10/2011 at [facility] Left: Hip [employer] [id number]# / / [id number] Liner Acetab 32mm 20 Deg 50-52 Xlpe [id number] - [id number] Implanted:Qty: 1 on 08/10/2011 at [facility] Left: Hip [employer] [id number]# / / [id number] Stem Fem Anthlgy #4 Porous - [id number] Implanted:Qty: 1 on 08/10/2011 at [facility] Left: Hip [employer] [id number]# / / [id number] Head Fem Cocr 10/21 32-0 - [id number] Implanted:Qty: 1 on 08/10/2011 at [facility] Left: Hip [employer] [id number]# / / [id number] Procedures Procedure Name Priority Date/Time Associated Diagnosis Comments XR DXA BONE DENSITY 2 SITES AXIAL Routine 02/24/2018 9:47 AM CDT Osteoporosis from Last 3 Months or Most Recently Relevant to Health Maintenance Results * XR DXA BONE DENSITY 2 SITES AXIAL (02/24/2018 9:47 AM CDT) Anatomical Region Laterality Modality Spine, HIPS, HIPL, HIPR Bone Den sitometry Impressions 02/28/2018 4:31 PM CDT This patient's T-score meets the World Health Organization (WHO) criteria for low bone density (osteopenia) at one or more measured sites (T-score between less than -1.0 and greater than -2.5). The risk of osteoporotic fracture increases approximately two-fold for each 1.0 SD decrease in T-score. COMPARISON: Comparison with previous study dated 01/29/2015 shows: There was a statistically significant increase in the bone mineral density in the spine. Comparison with baseline study dated 05/17/2014 shows: There was a statistically significant increase in the bone mineral density in the spine. Statistical significance is determined by the least significant change (LSC) for the scanner and operators at this facility. FRAX is not reported because neither hip was scanned. The scan details are available in the patient's chart in [facility]. Crista Garza M.D. Body/Breast Radiologist [email or web address] / Narrative 02/28/2018 4:31 PM CDT DIAGNOSTIC DXA BONE MINERAL DENSITY, 02/24/2018 CLINICAL HISTORY: This is a 77-year-old female patient. RISK FACTORS: The patient has estrogen deficiency. The patient has a loss of height by more than 1 inch. The patient has a history of low bone density based on a prior BMD study (osteopenia). The patient has a history of osteoporosis based on a prior BMD study. The patient has the following medical condition(s): History of breast cancer. The patient has taken for at least one month the following medications in the last year: hormonal treatment for breast cancer. TECHNIQUE: Dual-energy x-ray absorptiometry system (axial skeleton). The patient was scanned on a INFIMET scanner, fast-array scan mode. The study was technically adequate. The right and left hip were not scanned due to metal artifact. FINDINGS: BMD T-Score Z-Score Lumbar Spine (L1 to L4) 1.084 g/cm2 -0.8 1.0 Right Radius 0.554 g/cm2 -2.2 0.5 Mitali Carr MD DEXA Radha l Result from Last 3 Months or Most Recently Relevant to Health Maintenance Insurance MEDICARE ADVANTAGE MR MEDICARE PPS Advance Directives * Full Code (Latest Code Status on File) Date Activated Date Inactivated Comments 08/13/2019 6:56 PM 08/15/2019 1:47 PM Question Answer Comments Code Status Discussion: Per Advance Care Plan * Full Code Date Activated Date Inactivated Comments 02/22/2014 9:20 AM 02/23/2014 2:26 AM * Full Code Date Activated Date Inactivated Comments 02/08/2014 9:14 AM 02/09/2014 2:27 AM * Full Code Date Activated Date Inactivated Comments 02/06/2014 10:17 AM 02/08/2014 9:14 AM * Full Code Date Activated Date Inactivated Comments 08/10/2011 12:08 PM 08/13/2011 4:46 PM Care Teams Numberer And Wirer Relationship Specialty Start Date End Date Dawood Simmons PA-C [address] [place] [id number] PCP - General Physician Front End Web Designer 10/11/24
--- OUTSIDE RECORDS SUMMARY | 2025-03-18 06:03 | XMS_ITS | Encounter Summary ---
Author Organization [facility] Address [address], [place] [address] Care Team Providers Care Speech Therapy Assistant Name Role Phone Nadia Benson PA-C Primary Care Provider [phone] Encounter Details Date Type Department Care Team (Late st Contact Info) Description 02/24/2019 Correspondence [facility] Radiology [address] [place] [id number] Radiology, Provider MRI SAFETY SHEET AND COMPATIBILITY FORM Social History Tobacco Use Types Packs/Day Years [...] on filedocumented in this encounter Care Teams Speech Therapy Assistant Relationship Specialty Start Date End Date Nadia Benson PA-C [address] [place] [address] PCP - General Physician Cyber Incident Handler 06/09/21 documented as of this encounter
--- OUTSIDE RECORDS SUMMARY | 2025-03-18 06:03 | XMS_ITS | Encounter Summary ---
Author Organization [facility] Address [address] [place] [address]. [place] [address] Care Team Providers Care Cnc Operator Programmer Name Role Phone Hnady Noyola DO Unavailable Bisi Mcfarlane MD Primary Care Provider [phone] John Jones MD Unavailable Noble Freire MD Unavailable [phone] Marii Mendiola RN Unavailable Unavailable Trev Montanez MD Unavailable Buffy Esparza PA-C Unavailable Trev Montanez MD Unavailable Encounter Details Date Type Department Care Team (Late st Contact Info) Description 10/10/2024 [facility] [place] [facility] [address] [place] [address] April Ribeiro Social History Tobacco Use Types Packs/Day Years [...] on file 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 Gender Identity Not on file Sexual Orientation Not on file documented as of this encounter Plan of Treatment Not on file documented as of this encounter Visit Diagnoses Not on filedocumented in this encounter Care Teams Cnc Operator Programmer Relationship Specialty Start Date End Date Bisi Mcfarlane MD [facility] [address] [place] [address] PCP - General Family Medicine 09/18/24 Handy Noyola DO [address] [facility] [address] [place] [address] Flight Radio Operator Pulmonary Disease 09/14/24 John Jones MD [facility] [address] [facility] [address] [place] [address] Hematology & Oncology 09/18/24 Noble Freire MD [facility] [address] [place] [address] [place] [address] Hematology & Oncology 09/18/24 Marii Mendiola, BEBETO Specialty Director Of Employer Services Hematology & Oncology 10/06/24 Trev Montanez MD [address] [facility] [address] [place] [address] Assigned Heart and Vascular Provider 10/30/24 01/27/25 Buffy Esparza PA-C [address] [facility] [address] [place], [place] [address] Assigned Surgical Provider 10/30/24 Trev Montanez MD [address] [facility] [address] [place] [address] Assigned Heart and Vascular Surgical Provider 01/28/25 documented as of this encounter
[2025-03-18 06:04] VITALS: BP 176/65; PULSE 65; RESP 18; TEMP 36.7; O2SAT 97; BMI 26.4
--- NOTE | 2025-03-18 06:27 | CRLHL7_ITS ---
For Patients: As a result of the Century Cures Act, medical imaging exams and procedure reports are released immediately into your electronic medical record. You may view this report before your referring provider. If you have questions, please contact your health care provider. INDICATION: Vertigo and new onset dizziness. COMPARISON: None. TECHNIQUE: CT of the brain / head without intravenous contrast. Multiplanar axial, coronal, and sagittal reformats were reconstructed. FINDINGS: No intracranial hemorrhage. Mild age-related parenchymal volume loss. No acute or subacute cortically based infarct. Scattered white matter hypodensities may be related to chronic microvascular ischemia. No mass or mass effect. Normal ventricles. No skull fractures. No worrisome focal bone lesion. Mastoids and middle ears are clear. IMPRESSION: No acute intracranial findings. Please note that all CT scans at this facility use dose modulation, iterative reconstruction, and/or weight-based dosing when appropriate to reduce radiation dose to as low as reasonably achievable. Dictated by Nakia Orourke MD @ 03/18/2025 6:56:56 AM (Electronically Signed)
[2025-03-18] MEDS: ONDANSETRON 2 MG/ML inj 4 MG IVP (06:31)
[2025-03-18] MEDS: 0.9 % SODIUM CHLORIDE 500 ML 500 ML IV (06:31)
[2025-03-18] MEDS: MECLIZINE HCL 25 MG TABLET PO (06:31)
--- NOTE | 2025-03-18 06:33 | ED_ITS ---
HPI - General Adult General Chief complaint: Dizziness/Vertigo Stated complaint: Dizziness Time Seen by Provider: 03/18/25 06:10 Source: patient, family and EMS Mode of arrival: EMS Limitations: other (Mild cognitive impairment) History of Present Illness HPI narrative: 84-year-old female presents to the emergency department with a 3 hour history of dizziness, vomiting x1. Patient reports that when she woke 3:00 a.m. this morning, she had a feeling of dizziness. She initially has a lot of trouble describing to me if this was a room spinning type of dizziness or more of a lightheaded type of dizziness. She says that she has some tingling on the left side of her scalp, is not prone to migraines. No focal neurological changes. No speech difficulty. Symptoms were worse when she stands or changes position. No vision changes. Does not take any anticoagulants. No fall, injury or trauma. Did not try taking any medications to help with symptoms. Recently started calcium supplement but no other new medications. No prior history of vertigo, strokes or TIA. No prior cardiac history, no history of arrhythmia. No chest pain. No fevers or recent medical illness. No dysuria. EMS reported stable vitals, did not administer any medications. Symptoms were present upon awakening, last known normal was when she went to bed previous night. No prior history of similar symptoms. Lives with son, he presents with her and does help fill in her history and story. She is not a particularly good historian for her past medical history, medications or description of her symptoms but he reports that she had told him that it was a room spinning type of dizziness. He denies any changes from baseline mentation. No diarrhea or other signs of GI illness besides a single episode of vomiting that was associated with the dizziness this morning. Past medical history notable for [id number] type 2 diabetes, hypothyroidism, GERD, osteopenia. Has had memory concerns documented in the past medical history listed in her chart as well. Nonsmoker, uses no assist devices baseline. ROS is notable further neurological in GI changes only, otherwise denies times 12 systems. Related Data Home Medications ?Medication ?Instructions ?Recorded ?Confirmed mecobalamin (vitamin B12) 1,000 1,000 mcg sublingual QDAY 10/26/24 03/18/25 mcg disintegrating tablet,sublingual blood-glucose sensor (FreeStyle 01/25/25 03/18/25 Karrie 3 Plus Sensor device) aspirin 81 mg tablet 81 mg PO QDAY 03/14/25 03/18/25 blood-glucose meter (Accu-Chek #1 ea 03/14/25 03/18/25 Guide Ny Glucose Meter) glipizide 10 mg tablet, extended 10 mg PO BID 03/18/25 03/18/25 release 24 hr Previous Rx's ?Medication ?Instructions ?Recorded empagliflozin 25 mg tablet 25 mg PO QAM #90 tabs 02/09/25 (Jardiance) levothyroxine 50 mcg tablet 50 mcg PO DAILY #90 tabs 02/09/25 meclizine 25 mg tablet 25 mg PO BID PRN dizziness #10 tabs 03/18/25 Allergies Allergy/AdvReac Type Severity Reaction Status Date / Time metformin AdvReac Intermediate Verified 03/18/25 06:06 [facility] Medical History Bilateral shoulder pain ?M25.511 - Pain in right shoulder (ICD-10) ?M25.512 - Pain in left shoulder (ICD-10) Hyperlipidemia ?E78.5 - Hyperlipidemia, unspecified (ICD-10) Macrocytosis ?D75.89 - Other specified diseases of blood and blood-forming organs (ICD-10) Hypoglycemia ?E16.2 - Hypoglycemia, unspecified (ICD-10) Lung infiltrate on CT ?R91.8 - Other nonspecific abnormal finding of lung field (ICD-10) Pulmonary nodules ?R91.8 - Other nonspecific abnormal finding of lung field (ICD-10) Chronic headache ?R51.9 - Headache, unspecified (ICD-10) ?G89.29 - Other chronic pain (ICD-10) Osteoporosis ?M81.0 - Age-related osteoporosis without current pathological fracture (ICD- 10) Essential tremor ?G25.0 - Essential tremor (ICD-10) GERD (gastroesophageal reflux disease) ?K21.9 - Gastro-esophageal reflux disease without esophagitis (ICD-10) Adenomatous polyp of colon ?D12.6 - Benign neoplasm of colon, unspecified (ICD-10) Concern about memory ?Z71.1 - Person with feared health complaint in whom no diagnosis is made (ICD-10) Leukopenia ?D72.819 - Decreased white blood cell count, unspecified (ICD-10) 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 - Benign neoplasm of peripheral nerves and autonomic nervous system of thorax (ICD-10) Neutropenia ?D70.9 - Neutropenia, unspecified (ICD-10) Back pain ?M54.9 - Dorsalgia, unspecified (ICD-10) History of non anemic vitamin B12 deficiency ?Z86.39 - Personal history of other endocrine, nutritional and metabolic disease (ICD-10) Surgical History History of partial mastectomy of left breast ?Z90.12 - Acquired absence of left breast and nipple (ICD-10) Social History Narrative: senior apt, no services lives with son, no DL What is your current living situation?: I presently have a place to live Problems where you live: no known problems In the past 12 months, utilities in danger of being shut off: no In past 12 months, lack of transportation kept you from medical appts, meetings, work, or getting things needed for daily living: no In the past 12 mos, have been you worried that your food would run out before you had money to buy more?: never true In the past 12 mos, the food you bought just didn't last and you didn't have money to buy more?: never true Smoking Status: Never smoker Second hand tobacco smoke exposure: No How often do you have a drink containing alcohol: never AUDIT-C Alcohol total score: 0 Non-prescribed substance use: denies use How often does anyone, including family, friends and others, physically hurt you : never How often does anyone, including family, friends and others, insult or talk down to you: never How often does anyone, including family, friends and others, threaten you with harm: never How often does anyone, including family, friends and others, scream or curse at you: never Exam Const: Vital Signs, click to edit/add: Vital Signs - 24 hr 03/18/25 06:04 03/18/25 06:38 03/18/25 06:50 Temperature 98.1 F Pulse Rate 65 Pulse Rate [Right Pulse Oximeter] 65 Respiratory Rate 18 18 Blood Pressure 157/67 H Blood Pressure [Le ft Upper Arm] 176/65 H Pulse Oximetry 97 97 97 Oxygen Delivery Me thod Room Air 03/18/25 07:02 Temperature Pulse Rate 59 L Pulse Rate [Right Pulse Oximeter] Respiratory Rate Blood Pressure 146/61 H Blood Pressure [Le ft Upper Arm] Pulse Oximetry 94 Oxygen Delivery Me thod Documenting provider has reviewed patient's vital signs: yes Common normals: no apparent distress and alert Other: Memory impairment noted. Seem similar to what is described in previous ED visit. Can speak in full sentences, visually tracks me normally around the room. HENMT: Common normals: normocephalic, TM's normal bilaterally, nasal mucous membranes and turbinates normal, moist oral mucous membranes and oropharynx normal Head and scalp: normocephalic Face and sinus: normal facial exam and face symmetric Nose: nasal mucous membranes and turbinates normal Tympanic membrane: TM's normal bilaterally Mouth: oral and palatal mucosa normal Throat: posterior oropharynx normal Eye: Common normals: conjunctivae normal General eye: normal appearance of both eyes Conjunctiva: conjunctiva(e) normal Other: Left beating horizontal nystagmus on exam. Raheem-Hallpike maneuver reproduces symptoms, suggestive of vertigo with localization to left side. Neck & C-Spine: Common normals: full ROM and no lymphadenopathy General: normal visual inspection Resp: Common normals: normal respiratory effort, no use of accessory muscles and clear to auscultation bilaterally Effort & inspection: able to speak in complete sentences Auscultation: clear to auscultation bilaterally Cardio: Common normals: regular rate, regular rhythm, S1 normal heart sound, S2 normal heart sound and no murmurs Rate: regular rate Rhythm: regular rhythm Heart sounds: S1 normal and S2 normal GI: Common normals: Normal to inspection, nondistended, normoactive bowel sounds present, soft to palpation, non-tender, no hepatosplenomegaly and no masses Palpation: soft and no hepatosplenomegaly Extremity: Common normals: normal to inspection, full ROM and normal capillary refill Neuro: Common normals: CN's II-XII intact bilaterally, moves all extremities, no focal motor deficits and no sensory deficits noted Sensorium/orientation: alert Cranial nerves: CN normal except as noted Coordination/balance: znpoep-hz-rjlw test normal Speech: speech normal Motor exam: strength 5/5 throughout, no pronator drift and no tremor noted Coordination: [id number]-qa-[id number] test normal Psych: Appearance: grossly normal Attitude: calm Mood and affect: euthymic mood Insight: fair Judgement: fair Skin: Common normals: no rashes or lesions noted General skin exam: no rashes or lesions noted Course Course ED Course: 84-year-old female with dizziness, seems vertigo in nature, Raheem-Hallpike maneuver positive with horizontal nystagmus present. No rotational nystagmus, headache, focal neurological changes elsewhere. Last known well was last night, symptoms now present for over 3 hours. Would recommend basic labs, EKG troponin and head CT to rule out brain bleed, tumor, metabolic source. Most likely benign positional vertigo. Cannot fully exclude stroke or TIA. Will administer Zofran, 0.5 L of fluid and meclizine and repeat exam if symptoms do clinically i mprove. Await clinical response and findings, consider neurology consult if unclear. Reevaluation(s) Time of Reevaluation #1: 07:36 Reevaluation #1: Upon re-evaluation, patient is feeling quite a bit better after the meclizine and Zofran. No further episodes of retching. She is finishing up her IV fluids. Tingling on the side of the head has resolved. Repeat neurological exam is stable, certainly no worsening. Nystagmus is quite a bit improved actually but still somewhat present. Counseled patient and son on findings. Degenerative changes noted on CT of the head, no other abnormalities with labs. Suspect benign positional vertigo. Counseled that these episodes are likely to recur in those that are susceptible, especially with age. Typical safety warnings reviewed. Prescription for meclizine provided instructed to take another dose tonight and then tomorrow morning. Rest for the 1st 24 hours, lots of fluids. Alarm symptoms reviewed that would warrant ED presentation. Written instructions provided, all questions answered. Vital Signs Vital signs: Initial Vital Signs Temperature 98.1 F 03/18/25 06:04 Temperature Source Temporal Artery Scan 03/18/25 06:04 Pulse Rate 65 03/18/25 06:04 Respiratory Rate 18 03/18/25 06:04 Blood Pressure 176/65 H 03/18/25 06:04 Blood Pressure Mean 102 03/18/25 06:04 Blood Pressure Position Supine 03/18/25 06:04 Pulse Oximetry 97 03/18/25 06:04 Oxygen Delivery Method Room Air 03/18/25 06:04 Vital Signs Temperature 98.1 F 03/18/25 06:04 Pulse Rate 65 03/18/25 06:04 Respiratory Rate 18 03/18/25 06:04 Blood Pressure 176/65 H 03/18/25 06:04 Pulse Oximetry 97 03/18/25 06:04 Oxygen Delivery Method Room Air 03/18/25 06:04 Temperature 98.1 F 03/18/25 06:04 Pulse Rate 59 L 03/18/25 07:02 Respiratory Rate 18 03/18/25 06:38 Blood Pressure 146/61 H 03/18/25 07:02 Pulse Oximetry 94 03/18/25 07:02 Oxygen Delivery Method Room Air 03/18/25 06:04 Medications Administered Medications: Discontinued Medications Generic Name Dose Route Start Last Admin Trade Name Freq PRN Reason Stop Dose Admin Sodium Chloride 500 mls @ 500 mls/hr 03/18/25 06:27 03/18/25 06:31 0.9 % Sodium Chloride 500 Ml IV 03/18/25 07:26 500 mls/hr .Q1H ONE Administration Meclizine HCl 25 mg 03/18/25 06:27 03/18/25 06:31 Meclizine Hcl 25 Mg Tablet PO 03/18/25 06:28 25 mg ONCE ONE Administration Ondansetron HCl 4 mg 03/18/25 06:27 03/18/25 06:31 Ondansetron 2 Mg/Ml Inj IVP 03/18/25 06:28 4 mg ONCE ONE Administration Medical Decision Making Lab Data Lab results reviewed: Yes I reviewed the patient's lab results Lab results narrative: labs Reassuring. Stable for patient Labs: Lab Results 03/18/25 Range/Units 06:40 WBC 2.54 L (4.50-11.00) K/uL RBC 3.95 L (4.00-5.20) m/uL Hgb 12.7 (12.0-16.0) gm/dL Hct 38.6 (33.0-51.0) % MCV 98 (80-100) fL MCH 32 (26-34) pg MCHC 33 (32-36) gm/dL RDW Coeff of Neal 12.5 (11.5-15.5) % Plt Count 149 (140-440) K/uL Neut % (Auto) 43.6 (42.0-72.0) % Lymph % (Auto) 39.4 (20-44) % Banner % (Auto) 13.4 H (0.0-11.0) % Eos % (Auto) 2.0 (0.0-7.0) % Baso % (Auto) 0.0 (0.0-3.0) % Neut # (Auto) 1.10 L (1.7-7.0) K/uL Lymph # (Auto) 1.00 (0.90-2.90) K/uL Banner # (Auto) 0.30 (0.00-0.90) K/UL Eos # (Auto) 0.10 (0.00-0.50) K/uL Baso # (Auto) 0.00 (0.00-0.30) K/uL Abs Immat Gran (auto) 0.00 (0.00-0.30) K/uL Imm/Tot Granulo (auto) 1.6 % Sodium 139 (135-149) mmol/L Potassium 3.6 (3.6-5.1) mmol/L Chloride 109 (96-114) mmol/L Carbon Dioxide 20 (20-32) mmol/L Anion Gap 10 (7-15) mEq/L BUN 24 (7-30) mg/dL Creatinine 0.7 (0.5-1.5) mg/dL Estimated Creat Clear 29.01 Estimated GFR 84 ml/min Glucose 149 H (60-115) mg/dL Calcium 9.1 (8.4-10.6) mg/dL C-Reactive Protein < 0.5 L (0.5-1.0) mg/dL POC Troponin I 0.01 (0.01-0.04) ng/ml Imaging Data CT scan - head: Attestation: I have reviewed the pertinent imaging results. My impression: Degenerative changes but no obvious bleed, mass or signs of recent stroke. Radiologist's impression: FINDINGS: No intracranial hemorrhage. Mild age-related parenchymal volume loss. No acute or subacute cortically based infarct. Scattered white matter hypodensities may be related to chronic microvascular ischemia. No mass or mass effect. Normal ventricles. No skull fractures. No worrisome focal bone lesion. Mastoids and middle ears are clear. IMPRESSION: No acute intracranial findings. ECG Data Attestation: I personally reviewed and interpreted this ECG as follows: Prior ECG tracings: not available for review Interpretation: Sinus rhythm, rate of 60. Normal intervals and axis. No significant ST or T- wave abnormalities. Normal EKG. Quite healthy for age Discharge Plan Discharge Clinical Impression: Benign paroxysmal positional vertigo Patient Disposition: Home w/ Parent or Adult Condition: Improved Instructions: Benign Paroxysmal Positional Vertigo (DC) Additional Instructions: As we discussed, this episode seems consistent with benign vertigo. There does not seem to be evidence of stroke or other significant neurological finding. Electrolytes look normal, no signs of significant inflammation or other worrisome condition. Your given a medicine called Zofran to help the nausea and vomiting, some IV fluids and were started on a medication called meclizine. Meclizine often helps dull the dizziness about half way. It can cause some dry mouth. Drink lots of fluids today, eat salty foods. Take another dose of the meclizine this evening and then another dose tomorrow morning. After that you may continue taking the medication half to 1 full tablet up to 3 times daily but for many, symptoms are starting to improve and no further dosing is needed. Repeat episodes are unfortunately likely to happen, lasting a few days at a time. It is okay to try taking the medication right away if these occur, best taken at the 1st warning signs of the dizziness. Seizures, loss of consciousness, other focal neurological changes would not be expected and should be re-evaluated if these occur. It is okay to use Tylenol and or ibuprofen as needed for mild headache. Lots of rest for the 1st 24 hours and then gradually increasing activity as tolerated. Consider use of a walker or cane for balance to help prevent falls when you have dizzy spells. Remember to sit up and get up slowly to help reduce the risk of fall. Activity Level: Activity as Tolerated Discharge Diet: Regular Prescriptions: New meclizine 25 mg tablet 25 mg PO BID PRN (Reason: dizziness) Qty: 10 1RF No Action (DME) FreeStyle Karrie 3 Plus Sensor Device See Rx Instructions .Route Rx Instructions: As directed (DME) blood-glucose meter [Accu-Chek Guide Me Glucose Mtr] [facility] See Rx Instructions .ROUTE DIRECTED Qty: 1 Rx Instructions: As directed aspirin 81 mg tablet 81 mg PO QDAY mecobalamin (vitamin B12) 1,000 mcg tablet,disintegrating 1,000 mcg sublingual QDAY Rx Instructions: place tablet under tongue and allow to dissolve for at least30 secs before swallowing glipizide 10 mg tablet extended release 24hr 10 mg PO BID Jardiance 25 mg tablet 25 mg PO QAM Qty: 90 1RF Rx Instructions: do not fill jardiance 10mg levothyroxine 50 mcg tablet 50 mcg PO DAILY Qty: 90 3RF Follow Up/Referrals: Bisi Mcfarlane MD [Primary Care Provider] - Stand Alone [facility]: [facility] Info Inst[facility]
--- OUTSIDE RECORDS SUMMARY | 2025-03-18 06:34 | XMS_ITS | Encounter Summary ---
Author Organization [facility] Address [address] [place] [address] Care Team Providers Care Legal Coordinator Name Role Phone Nadia Benson PA-C Primary Care Provider [phone] Encounter Details Date Type Department Care Team (Latest Contact Info) Description 02/14/[address] [facility] [address] [place] [address] Yris Lafleur, SOLE ASSESSOR, INCUBATOR MACHINE OPERATOR [address] [facility] [address] [place] [address] JUAN DANIEL COGNITIVE ASSESSMENT (MOCA) Social History [...] on filedocumented in this encounter Care Teams Legal Coordinator Relationship Specialty Start Date End Date Nadia Benson PA-C [address] [place], [place] [id number] PCP - General Physician Director Client Services 06/09/21 documented as of this encounter
--- OUTSIDE RECORDS SUMMARY | 2025-03-18 06:34 | XMS_ITS ---
Author Name Interface, [employer] [facility] Address [address] [facility] [address] [address] Organization [facility] Address [address] [facility] [address] [address] Care Team Providers Care Die Maker Stamping Name Role Phone John Jones Unavailable Unavailable Allergies and Adverse Reactions Medication/Group Name Reaction Severity Date Pqvhqwl-Oqn-Qad Reductase Inhibitors Muscle pain 04/23/2014 Proton Pump [...] Oral PO 1.0 TABLET (S) daily active [place]-3 Fatty Acids Oral PO 1.0 CAPSUL E(S) [...]
--- OUTSIDE RECORDS SUMMARY | 2025-03-18 06:34 | XMS_ITS | Encounter Summary ---
Author Organization [facility] Address [address] [place] [address]. [place] [address] Care Team Providers Care Crime Prevention Police Officer Name Role Phone Handy Noyola DO Unavailable [phone] Bisi Mcfarlane MD Primary Care Provider [phone] John Jones MD Unavailable Noble Freire MD Unavailable [phone] Marii Mendiola RN Unavailable Unavailable Buffy Esparza PA-C Unavailable [phone] Trev Montanez MD Unavailable Reason for Referral * Diagnostic Imaging CT Scan (Routine) - Authorized Specialty Diagnoses / Procedures Referred By Contac t Referred To Contact Radiology. Diagnoses Schwannoma of nerve of chest Procedures CT Chest w/o contrast Michaela Caruso APRN [facility] [address] [facility] [address] [facility] [address] [place] [address] Phone: tel: fax: Referral ID Status Reason Start Date Expiration Date V isits Requested Visits Authorized [id number] Authorized 03/05/2025 03/05/2026 1 1 Reason for Visit * Reason Comments Oncology Clinic Visit RTN Schwannoma of nerve of chest Encounter Details Date Type Department Care Team (Late st Contact Info) Description 03/05/2025 11:45 AM CDT Oncology Visit [facility] [address] [facility] [place] [address] Michaela Caruso APRN CORPORATE STATISTICAL FINANCIAL ANALYST [address] [facility] [address] [place] [address] Schwannoma of nerve of chest (Primary Dx) [...] on file Legal Sex Female 3:03 AM EFFICIENCY ANALYST Gender Identity Not on file Sexual Orientation [...] Body Mass Index 25.06 10/18/2024 5:53 AM EFFICIENCY ANALYST documented in this encounter Progress Notes * Michaela Caruso APRN CORPORATE STATISTICAL FINANCIAL ANALYST - 03/05/2025 11:45 AM CDT THORACIC SURGERY [...] son Nitesh, has season tickets to the [employer] and recently took her to a game. [...] not needed today. Pharmacy name entered into Belly Ballot: [phone] - [place], [place] - [address] [address] Frailty Screening: Is the patient [...] Primary documented in this encounter Care Teams Crime Prevention Police Officer Relationship Specialty Start Date End Date Bisi Mcfarlane MD [facility] [address] [place] [address] PCP - General Family Medicine 09/18/24 Handy Noyola DO [address] [facility] [address] [place] [address] [employer]crete [employer]et Hooker Pulmonary Disease 09/14/24 John Jones MD [facility] [address] [place] [address] [address] [place] [address] Hematology & Oncology 09/18/24 Noble Freire MD [facility] [address] [place] [address] Hematology & Oncology 09/18/24 Marii Mendiola, BEBETO Specialty Eco Industrial Development Consultant Hematology & Oncology 10/06/24 Buffy Esparza PA-C [address] [facility] 4[address] [place] [address] Assigned Surgical Provider 10/30/24 Trev Montanez MD [address] [facility] [address] [place], [place] [id number] Assigned Heart and Vascular Surgical Provider 01/28/25 documented as of this encounter
--- OUTSIDE RECORDS SUMMARY | 2025-03-18 06:34 | XMS_ITS | Clinical Summary ---
Author Organization [facility] Address [address], [place] [address] Care Team Providers Care Geological Specialist Name Role Phone Nadia Benson PA-C Primary Care Provider [phone] Source Comments You are receiving this document as you are listed as the primary care provider,follow-up provider, or the patient has been referred to you for consultation.This is in compliance with the Medicare and[facility] Hospitalca[facility] EHR Incentive Program,which states Providers who transition their patient to another setting of careor provider of care or refers their patient to another provider of care shouldprovide summary care record for each transition of care or referral. [employer] Allergies Active Allergy Reactions Criticality Noted Date Comments Gabapentin Rash 11/27/2013 Omeprazole Angioedema High 05/31/2013 Statins Myalgias 04/16/2009 Medications [place]-3 Fatty Acids (FISH OIL) 1000 MG capsule [...] migh t be different from the original. Park Manager - Primary Care Name & Phone Number: [...] 05/21/2017 Microalbuminuria 02/28/2016 Type 2 diabetes mellitus, [facility] long-term current use of insulin 05/20/2015 Malignant [...] IIV3 (Trivalent) F mike Highdose, 65+ Yrs (56241) 08/04/2019,10/02/2016,07/31/2014 Influenza IIV4 (Quadrivalent ) 0.5mL (20692) 08/07/2015 Influenza IIV4 (Quadrivalent ) Fluad, 65+ [...] Comments TSH, SENSITIVE Routine 01/16/2022 1:48 PM AIRPLANE MECHANIC APPRENTICE Hypothyroidism, unspecified type BASIC METABOLIC PANEL Routine 01/16/2022 1:48 PM AIRPLANE MECHANIC APPRENTICE Hypertension, unspecified type HGB A1C Routine 01/16/2022 1:48 PM AIRPLANE MECHANIC APPRENTICE Type 2 diabetes mellitus without complication, without long-term current use of insulin (HRC) LIPID PANEL & DIRECT LDL (IF NEEDED) Routine 11/22/2019 2:14 PM AIRPLANE MECHANIC APPRENTICE Hyperlipidemia, unspecified hyperlipidemia type from Last 3 Months or Most Recently Relevant to Health Maintenance Results * TSH (01/16/2022 1:48 PM AIRPLANE MECHANIC APPRENTICE) TSH, Sensitive 2.34 0.30 - 4.50 uIU/mL 01/16/2022 7:34 PM AIRPLANE MECHANIC APPRENTICE [facility] Blood Venipuncture / Unknown 01/16/2022 1:48 PM AIRPLANE MECHANIC APPRENTICE 01/16/2022 1:48 PM AIRPLANE MECHANIC APPRENTICE us Nadia Benson PA-C LAB_1 Final Resul t [facility] [address] [phone] * (ABNORMAL) Basic Metabolic Panel (01/16/2022 1:48 PM AIRPLANE MECHANIC APPRENTICE) Sodium 138 136 - 145 mmol/L 01/16/2022 7:18 PM AIRPLANE MECHANIC APPRENTICE [facility] Potassium 4.6 3.5 - 5.1 mmol/L 01/16/2022 7:18 PM [facility] Chloride 105 98 - 109 mmol/L 01/16/2022 7:18 PM [facility] CO2 27 20 - 29 mmol/L 01/16/2022 7:18 PM [facility] Anion Gap 6(L) 7 - 16 mmol/L 01/16/2022 7:18 PM [facility] Calcium 9.7 8.4 - 10.4 mg/dL 01/16/2022 7:18 PM [facility] BUN 24 7 - 26 mg/dL 01/16/2022 7:18 PM [facility] Creatinine 0.97 0.55 - 1.02 mg/dL 01/16/2022 7:18 PM [facility] GFR, Estimated 58(L) >60 mL/min/1. 73m2 01/16/2022 7:18 PM [facility] Glucose 120(H) 70 - 100 mg/dL 01/16/2022 7:18 PM [facility] Comment:The given reference range is for the fasting state. Non-fasting reference range for glucose is 70 - 180 mg/dL. Hours Fasting N/A 01/16/2022 7:18 PM [facility] Blood Venipuncture / Unknown 01/16/2022 1:48 PM AIRPLANE MECHANIC APPRENTICE 01/16/2022 1:48 PM [facility] - 01/16/2022 7:18 PM AIRPLANE MECHANIC APPRENTICE The National Kidney Disease Education Program suggests measuring Cystatin C in patients with eGFRcrea of 45 to 59 ml/min/1.73^2 who do not have other markers of kidney damage (i.e. elevated urine Albumin/Creatinine Ratio or a prior Cystatin C confirming the presence of chronic kidney disease). us Nadia Benson PA-C LAB_1 Final Resul t [facility] [address] [address], [facility] [phone] [facility] [address] [place] [address] [phone] * (ABNORMAL) Hgb A1C (01/16/2022 1:48 PM AIRPLANE MECHANIC APPRENTICE) Hemoglobin A1C 7.0(H) <=5.6 % 01/16/2022 7:46 PM [facility] Blood Venipuncture / Unknown 01/16/2022 1:48 PM AIRPLANE MECHANIC APPRENTICE 01/16/2022 1:48 PM AIRPLANE MECHANIC APPRENTICE [facility]AL [facility] - 01/16/2022 7:46 PM AIRPLANE MECHANIC APPRENTICE For patients not previously diagnosed with diabetes: 5.7-6.4%: Increased risk for diabetes 6.5% and greater: Diagnostic for diabetes For patients diagnosed with diabetes: <8.0%: Goal of therapy for ages 18-75 Clinicians may recommend a higher or lower goal for specific individuals. us Nadia Benson PA-C LAB_1 Final Resul t [email or web address] [address] [phone] * (ABNORMAL) Lipid Panel and Direct LDL(If Needed) (11/22/2019 2:14 PM AIRPLANE MECHANIC APPRENTICE) Cholesterol 176 0 - 199 mg/dL 11/22/2019 9:57 PM [facility] Triglyceride 153(H) <=149 mg/dL 11/22/2019 9:57 PM [facility] HDL Cholesterol 31(L) >=40 mg/dL 11/22/2019 9:57 PM [facility] LDL, Calculated 114 <130 mg/dL 11/22/2019 9:57 PM [facility] Non HDL Chol, Calculated 145 mg/dL 11/22/2019 9:57 PM [facility] Cholesterol/HDL Ratio 5.7 11/22/2019 9:57 PM [facility] Hours Fasting 0 11/22/2019 9:57 PM [facility] Blood Venipuncture / Unknown 11/22/2019 2:14 PM AIRPLANE MECHANIC APPRENTICE 11/22/2019 2:20 PM AIRPLANE MECHANIC APPRENTICE us Maya Fuentes MD LAB_1 Final Result [email or web address] [address] [address], [facility] [phone] [facility] [address] [place] [address], [facility] [phone] from Last 3 Months or Most Recently Relevant to Health Maintenance Insurance [id number] [place] [address] [facility] [place] [address] [phone] [place] [address] Care Teams Geological Specialist Relationship Specialty Start Date End Date Nadia Benson PA-C [address] [place] [address] PCP - General Physician Top Stop Attacher 06/09/21
--- OUTSIDE RECORDS SUMMARY | 2025-03-18 06:34 | XMS_ITS | Encounter Summary ---
Author Organization [employer] Address [address] [place] [address]. [place] [address] Care Team Providers Care Protective Service Specialist Name Role Phone Handy Noyola DO Unavailable Bisi Mcfarlane MD Primary Care Provider [phone] John Jones MD Unavailable Noble Freire MD Unavailable [phone] Marii Mendiola RN Unavailable Unavailable Trev Montanez MD Unavailable [phone] Buffy Esparza PA-C Unavailable Trev Montanez MD Unavailable Encounter Details Date Type Department Care Team (Late st Contact Info) Description 10/10/2024 [facility] Advice [facility] [address] [place] [address] April Ribeiro Social History Tobacco [...] on file 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 Gender Identity Not on file Sexual Orientation Not on file documented as of this encounter Plan of Treatment Not on file documented as of this encounter Visit Diagnoses Not on filedocumented in this encounter Care Teams Protective Service Specialist Relationship Specialty Start Date End Date Bisi Mcfarlane MD [facility] [address] [place] [address] PCP - General Family Medicine 09/18/24 Handy Noyola DO 420 [facility], [facility] [address] [place] [address] Jack Machine Operator Pulmonary Disease 09/14/24 John Jones MD [facility] [address] [facility] [place] [address] [place] [address] Hematology & Oncology 09/18/24 Noble Freire MD [facility] [address] [place] [address] [place] [address] Hematology & Oncology 09/18/24 Marii Mendiola, BEBETO Specialty Corporate Trainer Hematology & Oncology 10/06/24 Trev Montanez MD 420 [facility] 207 [place] [address] Assigned Heart and Vascular Provider 10/30/24 01/27/25 Buffy Esparza PA-C 909 [facility] 4TH Floor [place], [place] [address] Assigned Surgical Provider 10/30/24 Trev Montanez MD 420 [facility] 207 [place] [address] Assigned Heart and Vascular Surgical Provider 01/28/25 documented as of this encounter
--- OUTSIDE RECORDS SUMMARY | 2025-03-18 06:34 | XMS_ITS | Encounter Summary ---
Author Organization [facility] Address [address] [place] [address]. [place] [address] Care Team Providers Care Design Cell Engineer Name Role Phone Handy Noyola DO Unavailable Bisi Mcfarlane MD Primary Care Provider [phone] John Jones MD Unavailable Noble Freire MD Unavailable [phone] Marii Mendiola RN Unavailable Unavailable Buffy Esparza PA-C Unavailable + [phone] Trev Montanez MD Unavailable Reason for Visit * Diagnostic Imaging Mammo (Routine) - Pending Review Specialty Diagnoses / Procedures Referred By Contac t Referred To Contact Radiology. Diagnoses Visit for screening mammogram Procedures MA Screening Bilateral w/ Yovani MA Screen Bilateral w/Yovani Bisi Mcfarlane MD [facility] [address] [place] [address] Phone: tel: fax: Referral ID Status Reason Start Date Expiration Date V isits Requested Visits Authorized [id number] Pending Review 02/12/2025 02/12/2026 1 1 Encounter Details Date Type Department Care Team (Late st Contact Info) Description 02/21/2025 2:21 PM CDT - 02/21/2025 11:59 PM CDT Hospital Encounter [facility] [address] [facility], [address] [place] [address] Bisi Mcfarlane MD 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 [address] [place] [address] PCP - General Family Medicine 09/18/24 Handy Noyola DO 420 [facility], [facility] 276 [place], [place] [address] Business Owner/Engineer Pulmonary Disease 09/14/24 John Jones MD [facility] 5 [facility] 100 [place] [address] Hematology & Oncology 09/18/24 Noble Freire MD [facility] [address] [facility] 200 [place] [address] Hematology & Oncology 09/18/24 Marii Mendiola, BEBETO Specialty Warehouse Logistics Coordinator Hematology & Oncology 10/06/24 Buffy Esparza PA-C 909 [facility] 4TH Floor [place], [place] [address] Assigned Surgical Provider 10/30/24 Trev Montanez MD 420 [facility] 207 [place], [place] [address] Assigned Heart and Vascular Surgical Provider 01/28/25 documented as of this encounter
--- OUTSIDE RECORDS SUMMARY | 2025-03-18 06:34 | XMS_ITS | Encounter Summary ---
Author Organization [facility] Address [address] [place] [address] Care Team Providers Care Pinion Sorter Name Role Phone aHndy Noyola DO Unavailable Bisi Mcfarlane MD Primary Care Provider [phone] John Jones MD Unavailable Noble Freire MD Unavailable [phone] Marii Mendiola RN Unavailable Unavailable Trev Montanez MD Unavailable Buffy Esparza PA-C Unavailable Trev Montanez MD Unavailable [phone] Encounter Details Date Type Department Care Team (Late st Contact Info) Description 12/07/2024 [facility] [address] [place] [address] [facility] Social History Tobacco Use Types Packs/Day [...] on file 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 Gender Identity Not on file Sexual Orientation Not on file documented as of this encounter Plan of Treatment Not on file documented as of this encounter Visit Diagnoses Not on filedocumented in this encounter Care Teams Pinion Sorter Relationship Specialty Start Date End Date Bisi Mcfarlane MD [facility] [address] [place] [address] PCP - General Family Medicine 09/18/24 Handy Noyola DO 420 [facility] 276 [place], [place] [address] Manager Of Housekeeping Pulmonary Disease 09/14/24 John Jones MD [facility] [address] [place] [address] 100 [place] [address] Hematology & Oncology 09/18/24 Noble Freire MD [facility] [address] [facility] 200 [place] [address] Hematology & Oncology 09/18/24 Marii Mendiola, BEBETO Specialty Staff Technologist Hematology & Oncology 10/06/24 Trev Montanez MD 420 [facility] 207 [place] [address] Assigned Heart and Vascular Provider 10/30/24 01/27/25 Buffy Esparza PA-C [address] [place] [address] 4TH [place] [address] Assigned Surgical Provider 10/30/24 Trev Montanez MD [address] [place] [address] [address] [place] [address] Assigned Heart and Vascular Surgical Provider 01/28/25 documented as of this encounter
--- OUTSIDE RECORDS SUMMARY | 2025-03-18 06:34 | XMS_ITS | Encounter Summary ---
Author Organization [facility] Address [address] [place] [address] Care Team Providers Care Logistics Support Name Role Phone Handy Noyola DO Unavailable Bisi Mcfarlane MD Primary Care Provider [phone] John Jones MD Unavailable Noble Freire MD Unavailable [phone] Marii Mendiola RN Unavailable Unavailable Trev Montanez MD Unavailable Buffy Esparza PA-C Unavailable Trev Montanez MD Unavailable Encounter Details Date Type Department Care Team (Late st Contact Info) Description 10/23/2024 [facility] [address] [place] [address] Marii Mendiola, RN Social History [...] on file 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 [address] [place] [address] PCP - General Family Medicine 09/18/24 Handy Noyola DO 420 [facility] 276 [place] [address] Swing Frame Grinder Operator Pulmonary Disease 09/14/24 John Jones MD [facility] [address] [place] [address] 100 [place] [address] Hematology & Oncology 09/18/24 Noble Freire MD [facility] [address] [facility] 200 [place] [address] Hematology & Oncology 09/18/24 Marii Mendiola, BEBETO Specialty Director Of Volunteer Services Hematology & Oncology 10/06/24 Trev Montanez MD [address] [place] [address] 207 [place] [address] Assigned Heart and Vascular Provider 10/30/24 01/27/25 Buffy Esparza PA-C [address] [place] [address] 4TH [place] [address] Assigned Surgical Provider 10/30/24 Trev Montanez MD 420 [facility] 207 [place], [place] [address] Assigned Heart and Vascular Surgical Provider 01/28/25 documented as of this encounter
--- OUTSIDE RECORDS SUMMARY | 2025-03-18 06:34 | XMS_ITS | Encounter Summary ---
Author Organization [facility] Address [address] [place] [address]. 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 Gender Identity Not on file Sexual [...] Montanez MD Interventional Radiology Staff Present: N/A S CENTER MANAGER documented in this encounter Plan of Treatment Not on file documented as of this encounter Visit Diagnoses Not on filedocumented in this encounter Care Teams Licensed Massage Therapist Relationship Specialty Start Date End Date Bisi Mcfarlane MD [facility] [address] [place] [address] PCP - General Family Medicine 09/18/24 Handy Noyola DO [address] [address] Project Inspector Pulmonary Disease 09/14/24 John Jones MD [facility] [address] [place] [address] 100 [place] [address] Hematology & Oncology 09/18/24 Noble Freire MD [facility] [address] [place] 200 [place] [address] Hematology & Oncology 09/18/24 Marii Mendiola, RN Specialty Belt Loop Cutter Hematology & Oncology 10/06/24 Trev Montanez MD 420 [facility] 207 [place] [address] Assigned Heart and Vascular Provider 10/30/24 01/27/25 Buffy Esparza PA-C 909 [facility] 4TH [place] [address] Assigned Surgical Provider 10/30/24 Trev Montanez MD 420 [facility] 207 [place] [address] Assigned Heart and Vascular Surgical Provider 01/28/25 documented as of this encounter
--- OUTSIDE RECORDS SUMMARY | 2025-03-18 06:34 | XMS_ITS | Encounter Summary ---
Author Organization [facility] Address [address], [place] [address] Care Team Providers Care Farm Owner Operator Name Role Phone Nadia Benson PA-C Primary Care Provider [phone] Encounter Details Date Type Department Care Team [...] on filedocumented in this encounter Care Teams Farm Owner Operator Relationship Specialty Start Date End Date Nadia Benson PA-C [address] [place] [address] PCP - General Physician Care Director 06/09/21 documented as of this encounter
--- OUTSIDE RECORDS SUMMARY | 2025-03-18 06:34 | XMS_ITS | Clinical Summary ---
Author Organization [place] [facility] Address [address] [place] [address]. [place] [address] Care Team Providers Care Bag Liner Name Role Phone Handy Noyola DO Unavailable [phone] Bisi Mcfarlane MD Primary Care Provider [phone] John Jones MD Unavailable Noble Freire MD Unavailable [phone] Marii Mendiola RN Unavailable Unavailable Buffy EsparzaC Unavailable [phone] Trev Montanez MD Unavailable Allergies Active Allergy [...] Description 03/05/2025 11:45 AM CDT Oncology Visit [facility] [address] [place] [address] Michaela Caruso APRN APPRENTICE Schwannoma of nerve of chest (Primary Dx) 03/05/2025 10:40 AM CDT Ancillary Procedure [facility] [place] 909 [facility] 1st [place] [address] Trev Montanez MD Schwannoma of nerve of chest 03/05/2025 Travel 02/21/2025 2:21 PM CDT - 02/21/2025 11:59 PM CDT Hospital Encounter [facility] [place] [facility] [address] [facility], [address] [place] [address] Bisi Mcfarlane MD Visit for [...] on file Legal Sex Female 3:03 AM LAB HEAD Gender Identity Not on file Sexual Orientation [...] 157.5 cm (5' 2) 10/18/2024 5:53 AM LAB HEAD Body Mass Index 25.06 10/18/2024 5:53 AM LAB HEAD Plan of Treatment Health Maintenance Due Date [...] BASIC METABOLIC PANEL Routine 10/19/2024 6:47 AM LAB HEAD HEMOGLOBIN A1C Routine 10/13/2024 9:30 AM LAB HEAD Pre-operative examination Schwannoma of nerve of chest [...] mass. ARMEN FABIAN MD Trev Montanez MD [facility] ORDERABLES Fin al Result * MA [...] (ABNORMAL) Basic metabolic panel (10/19/2024 6:47 AM LAB HEAD) Sodium 138 135 - 145 mmol/L 10/19/2024 7:28 AM LAB HEAD [facility] Potassium 4.2 3.4 - 5.3 mmol/L 10/19/2024 7:28 AM LAB HEAD [facility] Chloride 106 98 - 107 mmol/L 10/19/2024 7:28 AM LAB HEAD [facility] Carbon Dioxide (CO2) 21(L) 22 - 29 mmol/L 10/19/2024 7:28 AM LAB HEAD [facility] Anion Gap 11 7 - 15 mmol/L 10/19/2024 7:28 AM LAB HEAD [facility] Urea Nitrogen 14.8 8.0 - 23.0 mg/dL 10/19/2024 7:28 AM LAB HEAD [facility] Creatinine 0.95 0.51 - 0.95 mg/dL 10/19/2024 7:28 AM LAB HEAD [facility] GFR Estimate 58(L) >60 mL/min/1.7 3m2 10/19/2024 7:28 AM LAB HEAD [facility] Comment:eGFR calculated usin 2020 CKD-EPI equation. Calcium 9.0 8.8 - 10.4 mg/dL 10/19/2024 7:28 AM LAB HEAD [facility] Comment:Reference intervals for this test were updated on 05/23/2024 to reflect our healthy population more accurately. There may be differences in the flagging of prior results with similar values performed with this method. Those prior results can be interpreted in the context of the updated reference intervals. Glucose 119(H) 70 - 99 mg/dL 10/19/2024 7:28 AM LAB HEAD [facility] Blood STRUCTURE OF LEFT HAND / Unknown Venipuncture / Unknown 10/19/2024 6:47 AM LAB HEAD 10/19/2024 6:58 AM LAB HEAD us Mary Starkey MD LAB - BLOOD ORDERABLES Fin al Result [facility] [address] [facility] [address] Building, [address] [place] [address], [facility] * (ABNORMAL) Hemoglobin A1c (10/13/2024 9:30 AM LAB HEAD) Estimated Average Glucose 148(H) <117 mg/dL 10/13/2024 12:59 PM LAB HEAD [facility] Hemoglobin A1C 6.8(H) <5.7 % 10/13/2024 12:59 PM LAB HEAD [facility] Comment: Normal <5.7% Prediabetes 5.7-6.4% Diabetes 6.5% or higher Note: Adopted from ADA consensus guidelines. Blood BLOOD SPECIMEN / Unknown Venipuncture / Unknown 10/13/2024 9:30 AM LAB HEAD 10/13/2024 9:48 AM LAB HEAD us Buffy Esparza PA-C LAB - BLOOD ORDERABL ES Final Result [facility] [address] [facility] [address] [place] [address] from Last 3 Months or Most Recently Relevant to Health Maintenance Insurance [employer] MEDICARE ADVANTAGE [employer] MEDICARE ADVANTAGE Advance Directives For more information, please contact: [phone] Documents on File Type Date Recorded Patient Manager Social Services Expl anation Advance Directives and Living Will [...] Agents on File Name Relationship Healthcare Agent [facility] Communication Sulaiman Chatterjee Son Health Care Agent John German Son-in-Law [facility] Health Care Agent Care Teams Bag Liner Relationship Specialty Start Date End Date Bisi Mcfarlane MD [facility] [place] [address] [place] [address] PCP - General Family Medicine 09/18/24 Handy Noyola DO 420 [facility] [address] [place] [address] Rag Sorter Pulmonary Disease 09/14/24 John Jones MD [facility] 5 [facility] 100 [place] [address] Hematology & Oncology 09/18/24 Noble Freire MD [facility] [address] [facility] 200 [place] [address] Hematology & Oncology 09/18/24 Marii Mendiola, BEBETO Specialty Laborer Poultry Hatchery Hematology & Oncology 10/06/24 Buffy Esparza PA-C [address] [place] [address] 4[address] [place] [address] Assigned Surgical Provider 10/30/24 Trev Montanez MD [address] [place] [address] 207 [place] [address] Assigned Heart and Vascular Surgical Provider 01/28/25
--- OUTSIDE RECORDS SUMMARY | 2025-03-18 06:34 | XMS_ITS | CCD ---
Author Name Interface, [id number] lity Address [address] [facility] [address] [address] [facility] Address [address] [facility] [address] [address] Care Team Providers Care Manual Lathe Operator Name Role Phone John Jones Unavailable Unavailable Noble Freire Unavailable Unavailable Care Plan Reason for Visit Encounters Functional Status Medications Problems Social History
--- OUTSIDE RECORDS SUMMARY | 2025-03-18 06:34 | XMS_ITS | CCD ---
Author Name Interface, [id number] lity Address [address] [facility] [address] [address] [facility] Address [address] [facility] [address] [address] Care Team Providers Care Speech Correction Consultant Name Role Phone John Jones Unavailable Unavailable Noble Freire Unavailable Unavailable Care Plan Reason for Visit Encounters Functional Status Medications Problems Social History
--- OUTSIDE RECORDS SUMMARY | 2025-03-18 06:34 | XMS_ITS | Encounter Summary ---
Author Organization [facility] Address [address] [address] Care Team Providers Care Industrial Health Engineer Name Role Phone Nadia Benson PA-C Primary Care Provider [phone] Encounter Details Date Type Department Care Team [...] on filedocumented in this encounter Care Teams Industrial Health Engineer Relationship Specialty Start Date End Date Nadia Benson PA-C [address] [place], [place] [id number] PCP - General Physician Reclamation Furnace Operator 06/09/21 documented as of this encounter
--- OUTSIDE RECORDS SUMMARY | 2025-03-18 06:34 | XMS_ITS | Encounter Summary ---
Author Organization [facility] Address [address] [place] [address]. [place] [address] Care Team Providers Care Solid Waste Manager Name Role Phone Handy Noyola DO Unavailable Bisi Mcfarlane MD Primary Care Provider [phone] John Jones MD Unavailable Noble Freire MD Unavailable [phone] Marii Mendiola RN Unavailable Unavailable Buffy Esparza PA-C Unavailable + [phone] Trev Montanez MD Unavailable Reason for Visit * Diagnostic Imaging CT Scan (Routine) - Closed Specialty Diagnoses / Procedures Referred By Contac t Referred To Contact Radiology. Diagnoses Schwannoma of nerve of chest Procedures CT Chest w/o Contrast Trev Montanez MD [address] [facility] [address] [place] [address] Phone: tel: fax: Referral ID Status Reason Start Date Expiration Date Visits Re quested Visits Authorized [id number] Closed 10/10/2024 10/10/2025 1 1 Encounter Details Date Type Department Care Team (Latest Contact Info) Description 03/05/2025 10:40 AM CDT Ancillary Procedure [facility] [address] [facility] 1st [place] [address] Trev Montanez MD [address] [facility] [address] [place] [address] Schwannoma of nerve of chest Social History [...] on file 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 Gender Identity Not on file Sexual Orientation [...] chest documented in this encounter Care Teams Solid Waste Manager Relationship Specialty Start Date End Date Bisi Mcfarlane MD [facility] [address] [place] [address] PCP - General Family Medicine 09/18/24 Handy Noyola DO [address] [facility] [address] [place], [place] [address] Textile Conversion Manager Pulmonary Disease 09/14/24 John Jones MD [facility] 5 [facility] 100 [place] [address] Hematology & Oncology 09/18/24 Noble Freire MD [facility] [address] [facility] [address] [place] [address] Hematology & Oncology 09/18/24 Marii Mendiola, BEBETO Specialty Patient'S Librarian Hematology & Oncology 10/06/24 Buffy Esparza PA-C [address] [facility] 4TH [place] [address] Assigned Surgical Provider 10/30/24 Trev Montanez MD [address] [facility] [address] [place] [address] Assigned Heart and Vascular Surgical Provider 01/28/25 documented as of this encounter
--- OUTSIDE RECORDS SUMMARY | 2025-03-18 06:34 | XMS_ITS ---
Author Name Interface, [id number] lity Address [address] [facility] [address] [address] Organization [facility] Address [address] [facility] [address] [address] Care Team Providers Care Clinical Research Tech Name Role Phone John Jones Unavailable Unavailable Allergies and Adverse Reactions Medication/Group Name Reaction Severity Date Fhlcdzq-Pik-Bel Reductase Inhibitors Muscle pain 04/23/2014 Proton Pump [...] Oral PO 1.0 TABLET (S) daily active Posen-3 Fatty Acids Oral PO 1.0 CAPSUL E(S) [...]
--- OUTSIDE RECORDS SUMMARY | 2025-03-18 06:34 | XMS_ITS | Encounter Summary ---
Author Organization [facility] Address [address] [address] Care Team Providers Care Road Boss Name Role Phone Nadia Benson PA-C Primary Care Provider [phone] Encounter Details Date Type Department Care Team [...] on filedocumented in this encounter Care Teams Road Boss Relationship Specialty Start Date End Date Nadia Benson PA-C [address] [place] [address] PCP - General Physician Securities Teller 06/09/21 documented as of this encounter
--- OUTSIDE RECORDS SUMMARY | 2025-03-18 06:34 | XMS_ITS | Encounter Summary ---
Author Organization [facility] Address [address] 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 Gender Identity Not on file Sexual Orientation Not on file documented as of this encounter Plan of Treatment Not on file documented as of this encounter Visit Diagnoses Not on filedocumented in this encounter Care Teams Fat Pressroom Worker Relationship Specialty Start Date End Date Bisi Mcfarlane MD [facility] [address] [place] [address] PCP - General Family Medicine 09/18/24 Handy Noyola DO [address] [facility] [address] [place], [place] [address] Airplane Captain Pulmonary Disease 09/14/24 John Jones MD [facility] [address] [place] [address] [address] [place] [address] Hematology & Oncology 09/18/24 Noble Freire MD [facility] [address] [facility] 200 [place] [address] Hematology & Oncology 09/18/24 Marii Mendiola, BEBETO Specialty Erecting Engineer Hematology & Oncology 10/06/24 Buffy Esparza PA-C [address] [facility] 4TH [place] [address] Assigned Surgical Provider 10/30/24 Trev Montanez MD 420 [facility] [address] [place] [address] Assigned Heart and Vascular Surgical Provider 01/28/25 documented as of this encounter
--- OUTSIDE RECORDS SUMMARY | 2025-03-18 06:34 | XMS_ITS | Clinical Summary ---
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 Not on file Not on file Obstetrics History Last Filed Vital Signs Vital Sign Reading Time Taken Comments Blood Pressure 111/50 11/15/2019 3:11 PM BRANCH OFFICE ADMINISTRATOR Pulse 53 11/15/2019 3:11 PM BRANCH OFFICE ADMINISTRATOR Temperature 36.7 C (98.1 F) 11/15/2019 10:09 AM BRANCH OFFICE ADMINISTRATOR Respiratory Rate 18 11/15/2019 10:09 AM BRANCH OFFICE ADMINISTRATOR Oxygen Saturation 96% 11/15/2019 3:11 PM BRANCH OFFICE ADMINISTRATOR Inhaled Oxygen Concentration - - Weight 66.2 kg (146 lb) 11/15/2019 10:09 AM BRANCH OFFICE ADMINISTRATOR Height 157.5 cm (5' 2) 11/15/2019 10:09 AM BRANCH OFFICE ADMINISTRATOR Body Mass Index 26.7 11/15/2019 10:09 AM BRANCH OFFICE ADMINISTRATOR Plan of Treatment Health Maintenance Due Date [...] history exists Medical Devices Implanted Type Area Evaporator Supervisor Device Identifier Shelf Expiration Date Model / Serial / Lot Shell Acetab 50mm [id number] Nephew - [id number] Implanted:Qty: 1 on 08/10/[address] [facility] Ortho Total Joint Left: Hip [employer] [id number]# / / [id number] Screw [id number] [employer] Nephew - [id number] Implanted:Qty: 1 on 08/10/[address] [facility] Left: Hip [employer] [id number]# / / [id number] Screw [id number] [employer] Nephew - [id number] Implanted:Qty: 1 on 08/10/[address] [facility] Left: Hip [employer] [id number]# / / [id number] Liner Acetab 32mm 20 Deg 50-52 Xlpe [id number] - [id number] Implanted:Qty: 1 on 08/10/[address] [facility] Left: Hip [employer] [id number]# / / [id number] Stem Fem Anthlgy #4 Porous - [id number] Implanted:Qty: 1 on 08/10/[address] [facility] Left: Hip [employer] [id number]# / / [id number] Head Fem Cocr 10/21 32-0 - [id number] Implanted:Qty: 1 on 08/10/[address] [facility] Left: Hip [employer] [id number]# / / [id number] Procedures Procedure Name Priority Date/Time Associated Diagnosis [...] skeleton). The patient was scanned on a [employer] scanner, fast-array scan mode. The study was [...] 12:08 PM 08/13/2011 4:46 PM Care Teams Training And Development Officer Relationship Specialty Start Date End Date Dawood Simmons PA-C [address] [place] [address] PCP - General Physician Investigations Director 10/11/24
--- OUTSIDE RECORDS SUMMARY | 2025-03-18 06:34 | XMS_ITS | Encounter Summary ---
Author Organization [facility] Address [address] [facility] 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 Gender Identity Not on file Sexual Orientation Not on file documented as of this encounter Plan of Treatment Not on file documented as of this encounter Visit Diagnoses Not on filedocumented in this encounter Care Teams Child Development Instructor Relationship Specialty Start Date End Date Bisi Mcfarlane MD [facility] [address] [place] [address] PCP - General Family Medicine 09/18/24 Handy Noyola DO [address] [facility] [address] [place] [address] Public Policy Manager Pulmonary Disease 09/14/24 John Jones MD [facility] 5 [facility] 100 [place] [address] Hematology & Oncology 09/18/24 Noble Freire MD [facility] [address] [facility] 200 [place] [address] Hematology & Oncology 09/18/24 Marii Mendiola RN Specialty Proofsheet Corrector Hematology & Oncology 10/06/24 Buffy Esparza PA-C [address]09 [facility] 4TH Floor [place], [place] [address] Assigned Surgical Provider 10/30/24 Trev Montanez MD 420 [facility] [address] [place] [address] Assigned Heart and Vascular Surgical Provider 01/28/25 documented as of this encounter
--- OUTSIDE RECORDS SUMMARY | 2025-03-18 06:34 | XMS_ITS | Encounter Summary ---
Author Organization [facility] Address [address], [place] [address] Care Team Providers Care Acute Care Nurse Practitioner Name Role Phone Nadia Benson PA-C Primary Care Provider [phone] Encounter Details Date Type Department Care Team (Late st Contact Info) Description 02/24/2019 Correspondence [facility] Radiology [address] [place] [address] Radiology, Provider MRI SAFETY SHEET AND COMPATIBILITY [...] on filedocumented in this encounter Care Teams Acute Care Nurse Practitioner Relationship Specialty Start Date End Date Nadia Benson PA-C [address] [place] [address] PCP - General Physician Recruiting Operations Consultant 06/09/21 documented as of this encounter
--- OUTSIDE RECORDS SUMMARY | 2025-03-18 06:34 | XMS_ITS | Encounter Summary ---
Author Organization [facility] Address [address], [place] [address] Care Team Providers Care Director Environmental Name Role Phone Nadia Benson PA-C Primary Care Provider [phone] Encounter Details Date Type Department Care Team [...] on filedocumented in this encounter Care Teams Director Environmental Relationship Specialty Start Date End Date Nadia Benson PA-C [address] [place] [address] PCP - General Physician Presidential Helicopter Crew Chief 06/09/21 documented as of this encounter
[2025-03-18 06:38] VITALS: BP 157/67; PULSE 65; RESP 18; O2SAT 97
[2025-03-18 06:49] LABS: Hematocrit 38.6 % (33.0-51.0); Hemoglobin* 12.7 gm/dL (12.0-16.0); Immature Granulocytes Pct Auto 1.6 %; Lymphocytes Percent Auto 39.4 % (20-44); Mean Corpuscular HGB Conc 33 gm/dL (32-36); Mean Corpuscular Hemoglobin 32 pg (26-34); Mean Corpuscular Volume 98 fL (80-100); Monocytes Percent Auto 13.4 % (0.0-11.0); Neutrophils Percent Auto 43.6 % (42.0-72.0); Platelet Count* 149 K/uL (140-440); RDW Coefficient of Variation % 12.5 % (11.5-15.5); Red Blood Count 3.95 m/uL (4.00-5.20); White Blood Count* 2.54 K/uL (4.50-11.00)
[2025-03-18 06:50] VITALS: O2SAT 97
[2025-03-18 06:53] LABS: Troponin, Point-of-Care* 0.01 ng/ml (0.01-0.04)
[2025-03-18 06:54] LABS: Slide Review Reflex No
[2025-03-18 07:01] LABS: Chloride* 109 mmol/L (96-114); Potassium* 3.6 mmol/L (3.6-5.1); Sodium* 139 mmol/L (135-149)
[2025-03-18 07:02] VITALS: BP 146/61; PULSE 59; O2SAT 94
[2025-03-18 07:04] LABS: Blood Urea Nitrogen* 24 mg/dL (7-30); Creatinine* 0.7 mg/dL (0.5-1.5); Est. Creatinine Clearance* 29.01; Estimated Glomerular Filt Rate 84 ml/min
[2025-03-18 07:05] LABS: Anion Gap 10 mEq/L (7-15); Calcium* 9.1 mg/dL (8.4-10.6); Carbon Dioxide* 20 mmol/L (20-32); Glucose* 149 mg/dL (60-115)
[2025-03-18 07:11] LABS: C Reactive Protein* < 0.5 mg/dL (0.5-1.0)
== END 2025-03-18 07:59 | disposition home or self-care (01) ==
PROVIDERS: Emergency Provider Family Medicine; PCP Emergency Medicine
DX: H81.13 Benign paroxysmal vertigo, bilateral (principal)
CPT/HCPCS: 36415; 70450; 80048; 84484; 85025; 86140; 93005; 94761; 96374; 99284; 99285; A9270; J2405; J7030

== ENCOUNTER 2025-04-05 14:00 | Outpatient (CLI) | payer MEDICARE, SELFPAY ==
--- NOTE | 2025-04-05 14:00 | CRLHL7_ITS ---
For Patients: As a result of the Century Cures Act, medical imaging exams and procedure reports are released immediately into your electronic medical record. You may view this report before your referring provider. If you have questions, please contact your health care provider. XR DXA Bone Mineral Density (BMD) Reason for exam: Distant history of osteoporosis at . Current height (in): 61. Weight (lb): 133. Menopause age: 48. Ethnicity: White. 1. Have you had a previous hip or vertebral fracture? No. 2. Have you had any fractures during your adult life which did not result from significant trauma (e.g., auto accident)? No. 3. Did either of your parents have a hip fracture? No. 4. Do you smoke? No. 5. Have you ever taken Glucocorticoids? No. 6. Do you have rheumatoid arthritis? No. 7. Do you have secondary osteoporosis? No. 8. Do you drink 3 or more alcoholic drinks per day? No. 9. Are you being treated for osteoporosis? No. 10. Have you ever taken any of the following medications: Actonel, Evista, Fosamax, Miacalcin, Reclast, Boniva, Forteo, HRT (i.e., estrogen/hormone therapy), Protelos, Prolia, Vitamin D, Calcium, other ??? please specify. ANSWER: Yes, vitamin D and calcium. 11. Do you have any of the following medical conditions: Anorexia or bulimia, asthma or emphysema, end stage renal disease, hyperparathyroidism, any seizure disorders, cancer, inflammatory bowel diseases, hysterectomy, other ??? please specify. ANSWER: Yes, cancer and hysterectomy. 12. What was your maximum height (inches)? 62. 13. Do you perform weight bearing exercise regularly? No. 14. Do you regularly consume dairy products? Yes. 15. Do you drink caffeinated beverages? Yes. 16. At what age did your period start? 8. 17. Are you premenopausal? No. 18. How many full-term pregnancies have you had? 3. 19. Have you ever missed your period for more than 6 months in a row (not including or menopause)? No. TECHNIQUE: Bone mineral density study was performed using the [employer]. FINDINGS: The results of the study expressed as bone mineral density (BMD) are as follows: Lumbar spine L1 to L4: BMD: 0.937 g/cm2. T-score: -1.0. Z-score: 1.9 Radius Left 33%: BMD: 0.581 g/cm2. T-score: -1.9. IMPRESSION: Osteopenia. *Comparison exams done prior to 04/2020 were performed on different unit, [employer]. Antoni Montgomery M.D. Diagnostic Radiologist [email or web address] ANAMARIA/[email or web address] [email or web address]/Dictated by: Antoni Montgomery MD @ 04/06/2025 8:20:00 AM (Electronically Signed)
== END 2025-04-05 14:01 | disposition home or self-care (01) ==
PROVIDERS: PCP Emergency Medicine; Visit Provider Emergency Medicine
DX: Z13.820 Encounter for screening for osteoporosis (principal); M85.88 Other specified disorders of bone density and structure, other site
CPT/HCPCS: 77080

== ENCOUNTER 2025-07-25 09:57 | Outpatient (CLI) | payer MEDICARE, SELFPAY | END 2025-07-25 09:58 | disposition home or self-care (01) | PROVIDERS: Visit Provider Family Medicine | DX: M79.10 Myalgia, unspecified site (principal); E53.8 Deficiency of other specified B group vitamins | CPT/HCPCS: 80053; 82550; 82607 ==

== ENCOUNTER 2025-10-25 13:57 | Outpatient (CLI) | payer MEDICARE, SELFPAY | END 2025-10-25 13:58 | disposition home or self-care (01) | LOC: FRMREF 14:00 | PROVIDERS: PCP Family Medicine; Visit Provider Family Medicine | DX: E03.9 Hypothyroidism, unspecified (principal) | CPT/HCPCS: 84443 ==